=== PATIENT | female | born 1960 | race Caucasian/White ===

== ENCOUNTER 2023-08-05 09:48 | Emergency (ER) | payer MEDICAID, SELFPAY ==
[2023-08-05 10:09] VITALS: BP 185/93; PULSE 97; RESP 18; TEMP 36.6; O2SAT 97; BMI 33.1
[2023-08-05 10:59] LABS: Influenza A PCR NEGATIVE (Negative); Influenza B PCR NEGATIVE (Negative); Resp Syncy Virus RNA Qual PCR NEGATIVE (Negative); SARS COV2 PCR INHOUSE NEGATIVE (Negative)
--- NOTE | 2023-08-05 11:07 | ED.GENADULT ---
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 Has also noted increased wheezing, patient is an asthmatic she tells me. Also states the building she is living in the elevators frequently broken, and she is unable to make it all the way up the stairs due to her fibromyalgia and arthritis in her knees, she reports she has been having knee pain for years and it is worse when she goes up and down the stairs she tells me she lives on the 4th floor. Has not yet seen Ortho. Patient denies chest pain, shortness of breath, nausea, vomiting, abdominal pain, headache, vision changes, dizziness and weakness. Related Data Previous Rx's Medication Instructions Recorded albuterol sulfate 90 mcg/actuation 2 inh inhalation Q4-6H PRN 08/05/23 breath activated powder inhaler shortness of breath or wheezing #1 ea prednisone 20 mg tablet 40 mg (2 x 20 mg) PO DAILY 5 days 08/05/23 #10 tabs Allergies Allergy/AdvReac Type Severity Reaction Status Date / Time ketorolac [From Toradol] Allergy Rash Verified 08/05/23 10:09 Review of Systems Review of Systems: Constitutional : No Weight loss, No Fever, No Chills, + Fatigue, + Malaise ENT/Mouth : + sore throat, + Rhinorrhea Eyes: No Eye Pain, No Swelling, No Redness Cardiovascular : No Chest Pain, No SOB, No Dyspnea on Exertion, No Orthopnea, No Edema, No Palpitations Respiratory : + Cough, No Sputum, No Wheezing Gastrointestinal : No Nausea, No Vomiting, No Diarrhea, No Constipation, No abdominal Pain, No Hematochezia, No Melena Genitourinary : No Dysuria, No Urinary Frequency, No Hematuria, Musculoskeletal : + joint pain, No Myalgias, No Joint Swelling Skin : No Skin Lesions, No rash Neuro : No Weakness, No Numbness, No Dizziness, No Headache Psych : No Anxiety/Panic, No Depression All other systems reviewed and are negative Yes all other systems are reviewed and are negative [facility] Past Medical History Attestation statement: The following information was validated with the patient. Source: old records reviewed and nursing notes reviewed Social History Social History Advance Directives: No Advance Directives Information Provided: No Physical Exam ED Vital Signs: Vital Signs - 24 hr 08/05/23 10:09 Temperature 98 F Pulse Rate 97 Respiratory Rate 18 Blood Pressure 185/93 H Pulse Oximetry 97 Oxygen Delivery Method Room Air BMI result Body Mass Index 33.1 vss Appearance: Alert.? Oriented X3.? No acute distress.? Head: Normocephalic, atraumatic, no step-offs or deformities Throat: Uvula midline, pharynx normal appearing, no edema, erythema, abscesses or exudates. Patient speaking in full sentences controlling secretions well. Eyes: Pupils equal, round and reactive to light.? CVS: Normal heart rate and rhythm.? Pulses normal.? Respiratory: No respiratory distress.? Breath sounds with faint expiratory wheezing throughout..? Abdomen: Soft and nontender.? Skin: Skin warm and dry.? Normal skin color.? Normal skin turgor.? Extremities: No lower extremity edema.? No calf ttp. 5/5 strength to bilateral upper and lower extremities Back: No midline tenderness, no C-spine tenderness, full range of motion, no CVA tenderness bilaterally Neuro: Oriented X 3.? No motor deficit.? No sensory deficit. CN 2-12 intact Medical Decision Making Medical Decision Making MDM Narrative: 62-year-old female presents with multiple complaints including sore throat, cough, congestion the past 3 weeks status post construction starting in her building also complaining of wheezing. Also complaining of knee pain and body pain with going up and down the stairs that has been worsening. Physical examination benign Physical exam concerning for allergies/allergic irritants. Unlikely acute asthma exacerbation, respiratory distress, pneumonia, pulmonary embolism. Other differentials include viral illness. Joint pain likely secondary to my fibromyalgia and arthritis. No signs of septic joint, threat to Babb, neurovascular compromise, fracture dislocation. Plan at this time is to discharge patient home with albuterol, prednisone. Patient taking loratadine for allergies encouraged her to take this daily. Will have her follow-up with PCP. Educated patient on diagnosis and treatment plan, answered all question, patient verbalizes understanding. At this time patient will be discharged home, advised to return with new or worsening symptoms. Educated on worrisome signs and symptoms and when to return. At this time I feel comfortable discharge home. Differential Diagnosis Differential Diagnoses: The differential diagnosis associated with the presentation includes Physical exam concerning for allergies/allergic irritants. Unlikely acute asthma exacerbation, respiratory distress, pneumonia, pulmonary embolism. Other differentials include viral illness. Joint pain likely secondary to my fibromyalgia and arthritis. No signs of septic joint, threat to Babb, neurovascular compromise, fracture dislocation. Admission/Observation Consideration of admission/observation: Escalation of care including admission/observation considered Lab Data MDM Lab Attestation statement: I reviewed the patient's lab results. Labs: Lab Results 08/05/23 Range/Units 10:17 Influenza Type A (PCR) NEGATIVE (Negative) Influenza Type B (PCR) NEGATIVE (Negative) RSV RNA Qual (PCR) NEGATIVE (Negative) SARS-CoV-2 RNA (RT-PCR) NEGATIVE (Negative) Discharge Plan Discharge Clinical Impression: Viral infection, Asthma Patient Disposition: Home, Self-Care Instructions: Asthma (ED), Viral Syndrome (ED) Additional Instructions: Take your medications as prescribed. If you were prescribed antibiotics today, it is important that you take your medication to their entirety, do not skip any doses, do not finish them early. Follow-up with your primary care provider this week. Return to the emergency department with new or worsening symptoms. Such as fevers, chills, chest pain, shortness of breath, nausea, vomiting, dizziness, headache, vision changes, lethargy In case of emergency call 911 Prescriptions: New prednisone 20 mg tablet 40 mg PO DAILY 5 Days Qty: 10 0RF albuterol sulfate 90 mcg/actuation aerosol powdr breath activated 2 inh inhalation Q4-6H PRN (Reason: shortness of breath or wheezing) Qty: 1 0RF Referrals: Physician,Unknown J [Primary Care Provider] - 2 days Stand Alone Forms: Work/School Release
== END 2023-08-05 11:33 | disposition home or self-care (01) ==
PROVIDERS: Emergency Provider Emergency Medicine
DX: B34.9 Viral infection, unspecified (principal); J45.909 Unspecified asthma, uncomplicated; Z20.822 Contact with and (suspected) exposure to COVID-19; Z20.828 Contact with and (suspected) exposure to other viral communicable diseases
CPT/HCPCS: 0241U; 99283

== ENCOUNTER 2023-08-15 08:56 | Emergency (ER) | payer MEDICAID, SELFPAY ==
[2023-08-15] VITALS (7 sets, daily range): BP systolic 163–193; BP diastolic 82–110; PULSE 77–87; RESP 16–20; TEMP 37.1–37.2; O2SAT 90–98; BMI 31.7
--- NOTE | ~2023-08-15 | XR_ITS ---
EXAMINATION: XR CHEST CLINICAL INFORMATION: Chest pain, shortness of breath. COMPARISON: None available. TECHNIQUE: 2 views of the chest were obtained. FINDINGS: Right chest wall Port-A-Cath with tip at the cavoatrial junction. The lungs are well expanded. No focal consolidation. No pleural effusion. Cardiac silhouette is within normal limits. XR/XR chest 2V IMPRESSION: No acute abnormality.
--- NOTE | 2023-08-15 09:20 | ECG_ITS ---
Test Reason : cp Blood Pressure : / mmHG Vent. Rate : 087 BPM Atrial Rate : 087 BPM P-R Int : 162 ms QRS Dur : 078 ms QT Int : 376 ms P-R-T Axes : 023 016 054 degrees QTc Int : 452 ms Normal sinus rhythm Normal ECG No previous ECGs available Referred By: Generic ED Physician Electronically Signed By:DENISE ESPOSITO MD
--- NOTE | 2023-08-15 09:30 | ED.CHESTPAIN ---
HPI - Chest Pain General Chief Complaint: Chest Pain Stated Complaint: Asthma Time Seen by Provider: 08/15/23 09:30 Source: patient, RN notes reviewed and old records reviewed Mode of arrival: ambulatory History of Present Illness HPI narrative: 62-year-old female with past medical history of asthma, fibromyalgia, arthritis, presenting to the ED complaining of cough, SOB, chest pain, and diffuse myalgias s/p argument with person in her building on . Patient was seen and treated in our ED on 08/05 for similar symptoms related to asthma, has been using inhaler and prednisone without relief, however states symptoms exacerbated after this argument. Denies fever/chills, recent travel, sick contacts, pedal edema, calf tenderness MD complaint: chest pain Related Data Previous Rx's Medication Instructions Recorded albuterol sulfate 90 mcg/actuation 2 inh inhalation Q4-6H PRN 08/05/23 breath activated powder inhaler shortness of breath or wheezing #1 ea prednisone 20 mg tablet 40 mg (2 x 20 mg) PO DAILY 5 days 08/05/23 #10 tabs albuterol sulfate 90 mcg/actuation 2 puff inhalation QID PRN 08/09/23 aerosol inhaler shortness of breath or wheezing #6.7 grams prednisone 20 mg tablet 40 mg (2 x 20 mg) PO DAILY 5 days 08/15/23 #10 tabs Allergies Allergy/AdvReac Type Severity Reaction Status Date / Time ketorolac [From Toradol] Allergy Rash Verified 08/15/23 09:20 Review of Systems Review of Systems: Constitutional: No Fever, No Chills, No Fatigue, No Malaise ENT/Mouth: No Ear Pain, No Nasal Congestion, No sore throat, No Rhinorrhea, No Swallowing Difficulty Eyes: No Eye Pain, No Swelling, No Redness, No Vision Changes Cardiovascular: +Chest Pain, + SOB, No Dyspnea on Exertion, No Orthopnea, No Edema, No Palpitations Respiratory: +Cough, No Sputum, No Wheezing, No Dyspnea Gastrointestinal: No Nausea, No Vomiting, No Diarrhea, No Constipation, No Abdominal pain Musculoskeletal: No joint pain, +Myalgias, No Joint Swelling Skin: No Skin Lesions, No rash Neuro: No Weakness, No Loss of Consciousness, No Dizziness, No Headache Yes all other systems are reviewed and are negative Constitutional: Constitutional: Reports as per [facility] Past Medical History Attestation statement: The following information was validated with the patient. Source: old records reviewed Social History Social History Alcohol intake: never Use of substances other than those prescribed or required for medical reasons: No Advance Directives: No Patient : No Physical Exam Vital Signs: Vital Signs: Last Vital Signs Temp 98.8 F 08/15/23 09:42 Pulse 77 08/15/23 11:31 Resp 16 08/15/23 11:31 BP 193/110 H 08/15/23 09:42 Pulse Ox 95 08/15/23 12:13 O2 Del Method Room Air 08/15/23 12:13 BMI result Body Mass Index 31.7 Const: General: cooperative, healthy appearing, no acute distress and anxious Orientation/consciousness: patient oriented x3 Limitations: no limitations HEENT: Head: Yes normal to inspection and Yes atraumatic Ears: hearing grossly normal bilaterally General nose exam: Normal external nose present Face and sinus: Yes normal facial exam Eyes: General: appearance normal, both eyes and all related structures EOM: EOMs intact bilaterally Neck: Neck: Yes normal visual inspection and Yes no meningeal signs Resp: Effort & Inspection: normal respiratory effort and no respiratory distress Auscultation: no crackles, no wheezes and diminished lung sounds bilateral in the lower lung galindo Cardio: Rate: regular rate Heart sounds: S1 normal heart sound present and S2 normal heart sound present GI: Inspection: Yes normal to inspection Palpation (GI): Soft to palpation, nontender, no guarding and not rigid Skin: Rashes: no rashes Wounds: no wounds Neuro: General: patient oriented x3, tone normal and no meningeal signs Cranial nerves: Yes CN's II-XII intact bilaterally Gait exam (Neuro): Normal gait present Extrem: General: Yes normal to inspection, Yes no pedal edema and Yes no calf tenderness Course Course Course Narrative: -1110--labs reassuring. Troponin negative. UA negative. COVID and influenza negative XR chest 2V IMPRESSION: No acute abnormality. > patient with good air movement after DuoNeb. Feels comfortable for discharge home, will refer to pulmonology Results discussed with patient including worrisome signs and symptoms and strict return precautions, and when to return to the emergency department. They verbalized understanding and feel safe for discharge at this time. Medications Administered Discontinued Medications Generic Name Dose Route Start Last Admin Trade Name Kai PRN Reason Stop Dose Admin Albuterol/Ipratropium 3 ml 08/15/23 09:39 08/15/23 10:06 Albuterol/Iprat 2.5/0.5mg 3 Ml Ampul.Neb INHALE 08/15/23 09:40 3 ml ONCE ONE Administration Albuterol/Ipratropium 3 ml 08/15/23 11:12 08/15/23 11:30 Albuterol/Iprat 2.5/0.5mg 3 Ml Ampul.Neb INHALE 08/15/23 11:13 3 ml ONCE ONE Administration Prednisone 40 mg 08/15/23 09:39 08/15/23 09:56 Prednisone 20 Mg Tablet PO 08/15/23 09:40 40 mg ONCE ONE Administration Medical Decision Making Medical Decision Making MDM Narrative: 62-year-old female with past medical history of asthma, fibromyalgia, arthritis, presenting to the ED complaining of cough, SOB, chest pain, and diffuse myalgias s/p argument with person in her building on . On exam vital signs stable, NAD, nontoxic appearing, diminished lung sounds bibasilarly, no appreciable wheezing, no calf tenderness. Patient appears anxious. Concern for anxiety/panic reaction vs asthma exacerbation vs viral syndrome. Rule out pneumonia. Lower suspicion for PE/ACS or CHF Plan: EKG, labs CXR, viral testing, DuoNeb, p.o. prednisone Please refer to course for remaining clinical decision making, interpretation of labs/imaging results, and discussions with consultants and/or family members. Differential Diagnosis Differential Diagnoses: The differential diagnosis associated with the presentation includes As above Admission/Observation Consideration of admission/observation: Escalation of care including admission/observation considered Lab Data [facility] Lab Attestation statement: I reviewed the patient's lab results. 08/15/23 09:57 08/15/23 09:57 Labs: Lab Results 08/15/23 08/15/23 08/15/23 Range/Units 09:37 09:46 09:57 WBC 7.5 (4.8-10.8) X10*3/uL RBC 4.99 (4.20-5.50) X10*6/uL Hgb 14.3 (12.0-16.0) g/dl Hct 43.4 (37.0-47.0) % MCV 87.0 (80.0-98.0) fL MCH 28.7 (27.0-33.0) pg MCHC 32.9 (31.0-35.0) g/dl RDW 12.7 (11.0-16.0) % Plt Count 334 (160-400) X10*3/uL MPV 9.2 L (9.4-12.3) fL Immature Gran % (Auto) 0.3 (0.0-0.4) % Neut % (Auto) 43.9 L (45-73) % Lymph % (Auto) 45.5 H (20-40) % Randall % (Auto) 7.9 (2-11) % Eos % (Auto) 1.7 (0-4) % Baso % (Auto) 0.7 (0-2) % Lymph # (Auto) 3.4 (1.2-4.9) X10*3/uL Randall # (Auto) 0.6 (0.1-1.2) X10*3/uL Eos # (Auto) 0.1 (0.0-0.4) X10*3/uL Baso # (Auto) 0.1 (0.0-0.2) X10*3/uL Abs Immat Gran (auto) 0.02 (0.00-0.03) X10*3/uL Absolute Neuts (auto) 3.3 (2.0-8.3) x10*3/uL Absolute Nucleated RBC 0.000 (0.0-0.012) X10*3/uL Nucleated RBC % (auto) 0.0 (0.0-0.2) /100WBC Sodium 141 (135-145) mmol/L Potassium 3.6 (3.3-5.1) mmol/L Chloride 107 (96-108) mmol/L Carbon Dioxide 24 (22-29) mmol/L Anion Gap 14 (12-20) BUN 10 (9-16) mg/dL Creatinine 0.71 (0.5-1.4) mg/dL Estim Creat Clear Calc 84.9 Estimated GFR > 60 Random Glucose 154 H (60-115) mg/dL Calcium 9.8 (8.4-10.2) mg/dL Total Bilirubin 0.3 (0.0-1.0) mg/dL Direct Bilirubin 0.1 (0.0-0.5) mg/dL AST 19 (5-31) U/L ALT 23 (0-31) U/L Alkaline Phosphatase 117 (39-117) U/L Troponin I High Sens < 2.7 (<3.5-17.0) ng/L B-Natriuretic Peptide < 10 (<100) pg/mL Total Protein 7.3 (6.5-8.0) g/dL Albumin 4.3 (3.5-5.0) g/dL Urine Color Yellow Urine Appearance Clear Urine pH 8.5 (5.0-9.0) Ur Specific [place] 1.025 (1.005-1.025) Urine Protein Negative (Neg-Trace) mg/dL Urine Glucose (UA) >=1000 H (Negative) mg/dL Urine Ketones Negative (Negative) mg/dL Urine Blood Negative (Negative) Urine Nitrite Negative (Negative) Ur Leukocyte Esterase Negative (Negative) Urine RBC 0-2 (0-2) /HPF Urine WBC 0-5 (0-5) /HPF Ur Squamous Epith Cells 0-2 (0-2) /HPF Urine Bacteria None Seen (None Seen) Hyaline Casts 0-2 (0-2) /LPF COVID-19 (LAVINIA) Negative (Negative) COVID-19 Clin Com See Note Influenza Type A (DAMIAN) Negative (Negative) Influenza Type B (DAMIAN) Negative (Negative) Influenza A & B Note See Note Independent Interpretation I performed an independent interpretation of an: EKG (My interpretation: NSR 87, CA interval 162. QTc 452. no previous to compare) and Plain X-Ray Radiology Impression Discussion of test interpretation with radiology: I have reviewed the radiologist's reading. External Record Review External record reviewed: Inpatient record, Office record, Outpatient record, Prior outpatient labs, Prior outpatient radiology, Primary care record and Outside ED record Tests considered The following testing was considered but not selected: As above Chronic Conditions Patient?s care impacted by: Other (asthma) Discharge Plan Discharge Clinical Impression: Asthma, Anxiety Patient Disposition: Home, Self-Care Instructions: Asthma (DC), Anxiety (ED) Additional Instructions: Blood work and chest x-ray were reassuring. you tested negative for COVID Continue to use inhaler at home Start taking prednisone as prescribed You need to follow-up with her doctor & pulmonology If symptoms persist or worsen return to the ED Los an?lisis de jax y la radiograf?a de t?rax fueron tranquilizadores. tu prueba de COVID fue negativa Contin?e usando el inhalador en casa. Comience a mari prednisona seg?n lo prescrito Necesita hacer un seguimiento con grewal m?dico y neum?logo. Si los s?ntomas persisten o empeoran, regrese al servicio de urgencias. Prescriptions: New prednisone 20 mg tablet 40 mg PO DAILY 5 Days Qty: 10 0RF No Action prednisone 20 mg tablet 40 mg PO DAILY 5 Days Qty: 10 0RF albuterol sulfate 90 mcg/actuation aerosol powdr breath activated 2 inh inhalation Q4-6H PRN (Reason: shortness of breath or wheezing) Qty: 1 0RF albuterol sulfate 90 mcg/actuation HFA aerosol inhaler 2 puff inhalation QID PRN (Reason: shortness of breath or wheezing) Qty: 6.7 0RF Referrals: [facility] [place] Pulmonology Services [Provider Group] Physician,Unknown J [Primary Care Provider] - Print Language: Bolivian
--- NOTE | 2023-08-15 09:39 | PC.NURSE ---
a&ox3, vss aside from being hypertensive. provider aware at this time. nsr on the environmental monitoring specialist. provider/seed technician bedside. pt comes in today d/t increased generalized weakness, substernal chest pain that radiates to left side of chest, sob, and body pain. pt has hx of fibromyalgia/anxiety. no sob/wob noted at this time. pt able to speak in full/clear sentences w/o difficultly. respirations even and unlabored. call joy placed within reach.
[2023-08-15 09:45] LABS: Appearance Urine Clear; Color Urine Yellow; Glucose Urine UA >=1000 mg/dL (Negative); Leukocyte Esterase Urine Negative (Negative); Nitrite Urine Negative (Negative); PH 8.5 (5.0-9.0); Specific Gravity - Urine 1.025 (1.005-1.025); UMIC TRIGGER UACC YES; Urine Blood Negative (Negative); Urine Ketones Negative (Negative); Urine Protein Negative (Neg-Trace)
--- NOTE | 2023-08-15 09:46 | PC.NURSE ---
nasal swabs obtained. pt going to xray at this time. tech will draw labs when pt returns.
[2023-08-15] MEDS: predniSONE 20 MG TABLET 40 MG PO (09:56)
--- NOTE | 2023-08-15 09:57 | PC.NURSE ---
tech obtaining labs at this time. medication administered per provider order.
[2023-08-15 10:04] LABS: MANUAL DIFF FLAG NO
[2023-08-15 10:05] LABS: Basophils Absolute Auto 0.1 X10*3/uL (0.0-0.2); Basophils Percent Auto 0.7 % (0-2); Eosinophils Absolute Auto 0.1 X10*3/uL (0.0-0.4); Eosinophils Percent Auto 1.7 % (0-4); Hematocrit 43.4 % (37.0-47.0); Hemoglobin 14.3 g/dl (12.0-16.0); Imm Gran Abs Auto 0.02 X10*3/uL (0.00-0.03); Imm Gran Pct Auto 0.3 % (0.0-0.4); Lymphocytes Absolute Auto 3.4 X10*3/uL (1.2-4.9); Lymphocytes Percent Auto 45.5 % (20-40); Mean Corpuscular HGB Conc 32.9 g/dl (31.0-35.0); Mean Corpuscular Hemoglobin 28.7 pg (27.0-33.0); Mean Platelet Volume 9.2 fL (9.4-12.3); Monocytes Absolute Auto 0.6 X10*3/uL (0.1-1.2); Monocytes Percent Auto 7.9 % (2-11); Neutrophils Absolute Auto 3.3 x10*3/uL (2.0-8.3); Neutrophils Percent Auto 43.9 % (45-73); Platelet Count 334 X10*3/uL (160-400); Red Blood Count 4.99 X10*6/uL (4.20-5.50); Red Cell Distribution Width 12.7 % (11.0-16.0); White Blood Count 7.5 X10*3/uL (4.8-10.8)
--- NOTE | 2023-08-15 10:05 | PC.NURSE ---
RT bedside - pt receiving nebulizer treatment.
[2023-08-15] MEDS: Albuterol/Iprat 2.5/0.5MG 3 ML AMPUL.NEB INHALE ×2 (10:06→11:30)
[2023-08-15 10:08] LABS: Bacteria Urine None Seen (None Seen); Hyaline Casts Urine 0-2 /LPF (0-2); RBC Urine 0-2 /HPF (0-2); Squamous Epithelial Cell Urine 0-2 /HPF (0-2); WBC Urine 0-5 /HPF (0-5)
[2023-08-15 10:12] LABS: COVID-19 Test Negative (Negative); IDNOW Serial# 9DB6401D; IDNOW Serial# BCCEAD1C; Influenza A Negative (Negative); Influenza B2 Negative (Negative)
[2023-08-15 10:22] LABS: Alanine Aminotransferase 23 U/L (0-31); Albumin Level 4.3 g/dL (3.5-5.0); Alkaline Phosphatase 117 U/L (39-117); Anion Gap 14 (12-20); Aspartate Amino Transferase 19 U/L (5-31); Bilirubin Direct 0.1 mg/dL (0.0-0.5); Bilirubin Total 0.3 mg/dL (0.0-1.0); Blood Urea Nitrogen 10 mg/dL (9-16); Calcium 9.8 mg/dL (8.4-10.2); Carbon Dioxide 24 mmol/L (22-29); Chloride 107 mmol/L (96-108); Creatinine Clr Calc Pharmacy 84.9; Estimated Glomerular Filt Rate > 60; Glucose Random 154 mg/dL (60-115); Potassium 3.6 mmol/L (3.3-5.1); Sodium 141 mmol/L (135-145); Total Protein 7.3 g/dL (6.5-8.0)
[2023-08-15 10:27] LABS: B Type Natriuretic Peptide < 10 pg/mL (<100)
[2023-08-15 10:49] LABS: Troponin-I High Sensitivity < 2.7 ng/L (<3.5-17.0)
== END 2023-08-15 12:25 | disposition home or self-care (01) ==
PROVIDERS: Physician Assistant; Emergency Provider Student in an Organized Health Care Education/Training Program
DX: J45.909 Unspecified asthma, uncomplicated (principal); R07.89 Other chest pain; M79.10 Myalgia, unspecified site; F41.1 Generalized anxiety disorder; F43.0 Acute stress reaction; R06.02 Shortness of breath; Z11.52 Encounter for screening for COVID-19; Z20.822 Contact with and (suspected) exposure to COVID-19; Z79.899 Other long term (current) drug therapy
CPT/HCPCS: 71046; 80048; 80076; 81001; 81003; 83880; 84484; 85025; 87502; 87635; 93005; 94640; 99284; 99285

== ENCOUNTER 2025-04-25 09:00 | Emergency (ER) | payer MEDICAID, SELFPAY ==
[2025-04-25 09:07] VITALS: BP 135/75; PULSE 79; RESP 16; TEMP 36.8; O2SAT 96; BMI 31.5
[2025-04-25 10:10] LABS: MANUAL DIFF FLAG NO
[2025-04-25 10:11] LABS: Hematocrit 38.6 % (37.0-47.0); Hemoglobin 13.0 g/dl (12.0-16.0); Imm Gran Abs Auto 0.02 X10*3/uL (0.00-0.03); Imm Gran Pct Auto 0.3 % (0.0-0.4); Lymphocytes Absolute Auto 2.9 X10*3/uL (1.2-4.9); Mean Corpuscular HGB Conc 33.7 g/dl (31.0-35.0); Mean Corpuscular Hemoglobin 28.6 pg (27.0-33.0); Mean Corpuscular Volume 84.8 fL (80.0-98.0); NRBC Abs Auto 0.000 X10*3/uL (0.0-0.012); NRBC Pct Auto 0.0 /100WBC (0.0-0.2); Platelet Count 303 X10*3/uL (160-400); Red Blood Count 4.55 X10*6/uL (4.20-5.50); White Blood Count 5.9 X10*3/uL (4.8-10.8)
[2025-04-25 10:28] LABS: Alanine Aminotransferase 24 U/L (0-31); Albumin Level 4.2 g/dL (3.5-5.0); Alkaline Phosphatase 128 U/L (39-117); Anion Gap 11 (12-20); Aspartate Amino Transferase 23 U/L (5-31); Blood Urea Nitrogen 13 mg/dL (9-16); Calcium 8.9 mg/dL (8.4-10.2); Carbon Dioxide 26 mmol/L (22-29); Chloride 109 mmol/L (96-108); Creatinine Clr Calc Pharmacy 80.6; Estimated Glomerular Filt Rate > 60; Magnesium 2.3 mg/dL (1.6-2.6); Potassium 3.8 mmol/L (3.3-5.1); Sodium 142 mmol/L (135-145); Total Protein 6.8 g/dL (6.5-8.0)
--- NOTE | 2025-04-25 11:22 | ED.GENADULT ---
HPI - General Adult General Chief complaint: General Medical Stated complaint: lump under arm Time Seen by Provider: 04/25/25 11:22 Source: patient, RN notes reviewed, old records reviewed and television installer Mode of arrival: ambulatory Limitations: language barrier History of Present Illness ED Provider: Castillo HPI narrative: Patient is a 64-year-old female with history of T2 DM, HTN presenting to emergency department with complaint of left ankle swelling last night which has since resolved. Denies fall or other injury. Also complaining of bilateral lower back pain for the past few days. Denies dysuria, frequency, hematuria or other urinary symptoms. Denies fevers. Also complaining of abscess to right axilla, history of same to left axilla 1 year ago. Denies fevers, chills, body aches. Denies any spontaneous drainage. Denies recent falls or other trauma. Denies any chest pain, palpitations, dyspnea. Denies any dizziness or lightheadedness. Denies saddle anesthesia or bowel or bladder incontinence. MD complaint: Ankle swelling, back pain, abscess Related Data Previous Rx's ?Medication ?Instructions ?Recorded albuterol sulfate 90 mcg/actuation 2 inh inhalation Q4-6H PRN 08/05/23 breath activated powder inhaler shortness of breath or wheezing #1 ea prednisone 20 mg tablet 40 mg (2 x 20 mg) PO DAILY 5 days 08/05/23 #10 tabs albuterol sulfate 90 mcg/actuation 2 puff inhalation QID PRN 08/09/23 aerosol inhaler shortness of breath or wheezing #6.7 grams prednisone 20 mg tablet 40 mg (2 x 20 mg) PO DAILY 5 days 08/15/23 #10 tabs cephalexin 500 mg capsule 500 mg PO QID #28 caps 04/25/25 cyclobenzaprine 5 mg tablet 5 mg PO TID PRN muscle spasm #10 04/25/25 tabs lidocaine 5 % topical patch 1 patch topical DAILY #15 ea 04/25/25 Allergies Allergy/AdvReac Type Severity Reaction Status Date / Time ketorolac (From Toradol) Allergy Rash Verified 04/25/25 09:09 Review of Systems Review of Systems: as per hpi Yes all other systems are reviewed and are negative Constitutional: Constitutional: Reports as per HPI PMFSH Social History Social History Alcohol intake: never Advance Directives: No Advance Directives Information Provided: Yes Physical Exam ED Vital Signs: Vital Signs - 24 hr 04/25/25 09:07 Temperature 98.2 F Pulse Rate 79 Respiratory Rate 16 Blood Pressure 135/75 Pulse Oximetry 96 Oxygen Delivery Method Room Air BMI result Body Mass Index 31.5 Vital signs have been reviewed and appear to be correct. Blood pressure normal. Heart rate normal. Respiratory rate normal. Temperature normal. Oxygen saturation normal. Const General: cooperative, healthy appearing and no acute distress Orientation/consciousness: oriented to person, oriented to place, oriented to time and patient oriented x3 Limitations: no limitations HENMT Head: Yes normocephalic and Yes atraumatic Ears: external ears normal General nose exam: Normal external nose present Face and sinus: Yes face symmetric Mouth: oropharynx normal and moist mucous membranes Throat: Yes uvula midline Eyes Pupils: Equal, round and reactive pupils present Neck Neck: Yes normal visual inspection and Yes supple Resp Effort & Inspection: normal respiratory effort and able to speak in complete sentences Auscultation: clear to auscultation bilaterally Cardio Rate: regular rate Rhythm: regular rhythm Heart sounds: S1 normal heart sound present and S2 normal heart sound present GI Palpation (GI): Soft to palpation and nontender Auscultation: normoactive bowel sounds General: Yes no CVA tenderness Back/Spine/Pelvis Back: no CVA tenderness Thoracic/Lumbar Spine: thoracic and lumbar spine normal to inspection, thoraco-lumbar ROM normal, paraspinal muscle tenderness bilaterally in the mid lumbar, No thoracic spinal tenderness and No lumbar spinal tenderness Skin Other: 1 cm erythematous indurated area to right axilla without fluctuance or surrounding warmth or erythema General skin exam: elasticity normal and turgor normal Neuro General: oriented to person, oriented to place, oriented to time, patient oriented x3, moves all extremities, no focal motor deficits and CN's II-XI intact bilaterally Cranial nerves: Yes Equal, round and reactive pupils present Cognition (Neuro): normal cognition Extrem General: Yes full ROM, Yes no pedal edema and Yes no calf tenderness Psych Mental Status: mental status grossly normal Affect: normal affect Thought process: Normal thought process present Medical Decision Making Medical Decision Making MDM Narrative: Patient is a 64-year-old female with history of T2 DM, HTN presenting to emergency department with complaint of left ankle swelling last night which has since resolved. On exam patient is awake, A+Ox3, VS WNL, afebrile, normal neurological exam without focal deficits, physical exam findings as above. Given reported symptoms and physical exam findings, initial differential includes but is not limited to biliary abscess, dependent edema, lumbar strain, UTI. Do not suspect malignancy/mass, SEA, cauda equina/cord compression. Labs notable for no leukocytosis, no evidence of TERESA. UA notable for greater than 1000 mg/dL of glucose, no leukocytosis, no nitrites, 1+ bacteria but 6-10 epithelials, likely contamination. Will treat patient with Keflex for axillary abscess, advised warm compresses. Will send prescription for Flexeril for lumbar strain. Discussed with patient that her edema is likely dependent, should keep legs elevated while at rest, can also use compression stockings. Follow up with PCP as needed. Return precautions discussed. Patient verbalized understanding of and agreement with plan. In-person telecommunications project manager was utilized for all interactions, assessments, and discussions. Differential Diagnosis Differential Diagnoses: The differential diagnosis associated with the presentation includes As per [facility] Admission/Observation Consideration of admission/observation: Escalation of care including admission/observation considered Patient would have been admitted to the hospital had their clinical presentation warranted hospital admission. Lab Data [facility] Lab Attestation statement: I reviewed the patient's lab results. as per [facility] 04/25/25 10:04 04/25/25 10:04 Labs: Lab Results 04/25/25 04/25/25 Range/Units 10:04 12:09 WBC 5.9 (4.8-10.8) X10*3/uL RBC 4.55 (4.20-5.50) X10*6/uL Hgb 13.0 (12.0-16.0) g/dl Hct 38.6 (37.0-47.0) % MCV 84.8 (80.0-98.0) fL MCH 28.6 (27.0-33.0) pg MCHC 33.7 (31.0-35.0) g/dl RDW 13.7 (11.0-16.0) % Plt Count 303 (160-400) X10*3/uL MPV 9.0 L (9.4-12.3) fL Immature Gran % (Auto) 0.3 (0.0-0.4) % Neut % (Auto) 40.2 L (45-73) % Lymph % (Auto) 49.1 H (20-40) % [place]erry % (Auto) 7.6 (2-11) % Eos % (Auto) 1.5 (0-4) % Baso % (Auto) 1.3 (0-2) % Lymph # (Auto) 2.9 (1.2-4.9) X10*3/uL [place] # (Auto) 0.5 (0.1-1.2) X10*3/uL Eos # (Auto) 0.1 (0.0-0.4) X10*3/uL Baso # (Auto) 0.1 (0.0-0.2) X10*3/uL Abs Immat Gran (auto) 0.02 (0.00-0.03) X10*3/uL Absolute Neuts (auto) 2.4 (2.0-8.3) x10*3/uL Absolute Nucleated RBC 0.000 (0.0-0.012) X10*3/uL Nucleated RBC % (auto) 0.0 (0.0-0.2) /100WBC Sodium 142 (135-145) mmol/L Potassium 3.8 (3.3-5.1) mmol/L Chloride 109 H (96-108) mmol/L Carbon Dioxide 26 (22-29) mmol/L Anion Gap 11 L (12-20) BUN 13 (9-16) mg/dL Creatinine 0.70 (0.5-1.4) mg/dL Estim Creat Clear Calc 80.6 Estimated GFR > 60 Random Glucose 125 H (60-115) mg/dL Calcium 8.9 D (8.4-10.2) mg/dL Magnesium 2.3 (1.6-2.6) mg/dL Total Bilirubin 0.3 (0.0-1.0) mg/dL AST 23 (5-31) U/L ALT 24 (0-31) U/L Alkaline Phosphatase 128 H (39-117) U/L Total Protein 6.8 (6.5-8.0) g/dL Albumin 4.2 (3.5-5.0) g/dL Urine Color Yellow Urine Appearance Cloudy Urine pH 7.5 (5.0-9.0) Ur Specific [place] 1.020 (1.005-1.025) Urine Protein Negative (Neg-Trace) mg/dL Urine Glucose (UA) >=1000 H (Negative) mg/dL Urine Ketones Negative (Negative) mg/dL Urine Blood Negative (Negative) Urine Nitrite Negative (Negative) Ur Leukocyte Esterase Negative (Negative) Discharge Plan Discharge Clinical Impression: Abscess of axilla, right, Lumbar strain, Dependent edema Patient Disposition: Home, Self-Care Instructions: Low Back Strain (ED), Abscess (ED), Back Pain (ED), Edema (ED), Abscess Follow-up (ED) Additional Instructions: You are being treated for an abscess of your right axilla (armpit) a course of antibiotics. Complete the full course as prescribed even if your symptoms improve. We recommend that you apply warm compresses to the area for 10-15 minutes at a time several times daily. Do not attempt to express fluid from the areas this can cause a worsening infection. You are being treated for a low back strain with a muscle relaxer and topical lidocaine patches. Use these medications as prescribed. Your swelling to your ankle is likely due to dependent edema. We recommend that you elevate your feet while at rest. You can also use [id number] compression stockings. Follow up with your primary care provider as needed. Return to the emergency department if you develop increasing redness, warmth, drainage from the abscess, fever 100.4? F or greater, incontinence of urine or stool or difficulty urinating, persistent vomiting, chest pain, shortness of breath or any other new or concerning symptoms. Prescriptions: New cephalexin 500 mg capsule 500 mg PO QID Qty: 28 0RF lidocaine 5 % adhesive patch,medicated 1 patch topical DAILY Qty: 15 0RF Rx Instructions: leave on most painful area for up to 12 hrs cyclobenzaprine 5 mg tablet 5 mg PO TID PRN (Reason: muscle spasm) Qty: 10 0RF No Action prednisone 20 mg tablet 40 mg PO DAILY 5 Days Qty: 10 0RF albuterol sulfate 90 mcg/actuation aerosol powdr breath activated 2 inh inhalation Q4-6H PRN (Reason: shortness of breath or wheezing) Qty: 1 0RF albuterol sulfate 90 mcg/actuation HFA aerosol inhaler 2 puff inhalation QID PRN (Reason: shortness of breath or wheezing) Qty: 6.7 0RF prednisone 20 mg tablet 40 mg PO DAILY 5 Days Qty: 10 0RF Print Language: Belarusian
--- OUTSIDE RECORDS SUMMARY | 2025-04-25 12:11 | XMS_ITS | Clinical Summary ---
Author Organization [facility] Address [address] [place] [address] Care Team Providers Care Restaurant Service Manager Name Role Phone Dom, Tylor R AMRAI Primary Care Provider Allergies No known active allergies Medications Medication Sig Dispensed Refills Start Date End Date Status gabapentin (NEURONTIN) 800 MG tablet Take 1 tablet (800 mg total) by mouth 2 (two) times a day. 0 Active glipiZIDE (GLUCOTROL XL) ER 24 hr tablet 2.5 mg Take 1 tablet (2.5 mg total) by mouth daily. 0 Active mirtazapine (REMERON) 15 MG tablet Take 1 tablet (15 mg total) by mouth every night at bedtime. 0 Active clonazePAM (KlonoPIN) 1 MG tablet Take 1 tablet (1 mg total) by mouth 2 (two) times a day as needed for anxiety. 0 Active loratadine (CLARITIN) 10 MG tablet Take 1 tablet (10 mg total) by mouth daily. 0 Active DULoxetine (CYMBALTA) DR capsule 20 mg Take 1 capsule (20 mg total) by mouth daily. 0 Active Active Problems Problem Noted Date Diagnosed Date Malignant neoplasm of overla pping sites of left breast in female, estrogen receptor positive 06/03/2020 BRCA negative 06/03/2020 Social History Tobacco Use Types Packs/Day Years Used Date Smoking Tobacco: Never Smokeless Tobacco: Never Alcohol Use Standard Drinks/Week Comments No 0 (1 standard drink = 0.6 oz pur e alcohol) Sex and Gender Information Value Date Recorded Sex Assigned at Not on file Gender Identity Not on file Sexual Orientation Not on file Job Start Date Occupation Industry Not on file Not on file Not on file Last Filed Vital Signs Vital Sign Reading Time Taken Comments Blood Pressure 154/81 04/15/2023 12:04 PM EDT Pulse 72 04/15/2023 12:04 PM EDT Temperature 36.4 C (97.6 F) 04/15/2023 12:04 PM EDT Respiratory Rate - - Oxygen Saturation 97% 04/15/2023 12:04 PM EDT Inhaled Oxygen Concentration - - Weight 81.7 kg (180 lb 3.2 oz) 04/15/2023 12:04 PM EDT Height 160 cm (5' 3 ) 06/03/2020 3:46 PM EDT Body Mass Index 31.92 06/03/2020 3:46 PM EDT Plan of Treatment Health Maintenance Due Date Last Done Comments Hepatitis C Screening 1959 Depression Screening 1971 Preventative Health Evaluation 1977 Cervical Cancer Screening (Pap Smear) 1980 Colon Cancer Screening (Colonoscopy) 2004 Breast Cancer Screening (Mammogram) 2009 Pneumococcal Vaccine (2 of 2 - PCV) 07/10/2019 07/10/2018 Pneumococcal Vaccine (2 of 2 - PCV) 07/10/2019 07/10/2018 COVID-19 Vaccine ( season) 2024 07/15/2022, 01/26/2022, 09/22/2021, Additional history exists Fall Risk Assessment 2024 Osteoporosis Screening (DEXA Scan) 2024 Influenza Vaccine (#1) 2025 09/05/2020 DTap / Tdap / Td (2 - Td or Tdap) 07/10/2028 07/10/2018 RSV Adult > 60+ Yrs or (1 - 1-dose 75+ series) 2034 Shingrix-Zoster Vaccine Completed 10/14/2020, 06/11 Hepatitis B Vaccines Aged Out No long er eligible based on patient's age to complete this topic RSV Ped < 20 months Aged Out No longe r eligible based on patient's age to complete this topic Care Teams Restaurant Service Manager Relationship Specialty Start Date End Date Justin Fernandes APRN [address] [place] [id number] PCP - General Family Medicine 03/23/23 Justin Fernandes FNP [address] [place] [address] Nurse Practitioner Primary Care 03/23/23
--- OUTSIDE RECORDS SUMMARY | 2025-04-25 12:11 | XMS_ITS | Data Portability ---
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 neoplasm of breast 492391597 Z85.3 B mastectomy Seasonal a llergic rhinitis 944519085 J30.2 samson/flut/ dayana Memory impairment 739583 006 R41.3 memantine Microalbum inuric diabetic nephropathy 048716070 E11.21 irbesartan 150 Vitamin D deficiency 347 92907 E55.9 vitamin d Hypertriglyceridemia 302 816170 E78.1 TG 359 04/17/20 Lovaza 1 Low back pain 387018811 M54.5 ibu 600, Mapap, cycloben 5mg Hypomagnesemia 716663801 E83.42 mag 1.7 07/04/20 Noncomplia nce with medication regimen 351670317 Z91.14 education provided for compliance to medication and treatment. [address] [facility] [address] [place] [address] 08/12/2020 09:04:32 08/12/2020 11:24:15 Low back pain 096103991 M54.5 ibu 600, Mapap, cycloben 5----->10 mg, meloxicam 15 x-ray thoracic spine @ [facility] mgt referral next ov if needed-p Fibromyalgia 495397352 M 79.7 voltaren gel Hypertensive disorder 38 457898 I10 irbesartan 150 Diabetic n europathy with neurologic complication 367374498 E11.40 gabapentin Bilateral knee pain 1187 810914 6397495 M25.562 diclofenac top 1% , [facility] physical therapy referral Contact dermatitis 31799 004 L25.9 08/12/20 face/local ized to forehead mild soap and water, avoid apply sparingly betamethas one top. daily per pt's req due to ongoing/ch ronic Derm referral Demos-p [id number] [facility] [address] [place] [address] 2020 10:25:49 2020 13:16:17 Low back pain 770565957 M54.5 ibu 600, Mapap, cycloben 5----->10 mg, meloxicam 15 x-ray thoracic spine @ [facility] mgt referral next ov if needed-p Hypertensive disorder 38 480680 I10 irbesartan 150 Multiple complications due to type 2 diabetes mellitus 408030458 E11.8 NCS diet HBA1c 9.6, LDL 71, m/c 144 04/17/20 HBa1c 9.4 07/04/20 jardiance 10, rybelsus 7, met 1,000, asa 81 Memory impairment 063344 006 R41.3 memantine 5 Contact dermatitis 20300 004 L25.9 08/12/20 face/local ized to forehead mild soap and water, avoid apply sparingly betamethas one top. daily per pt's req due to ongoing/ch ronic Derm referral Demos-p Bilateral knee pain 1187 004189 2874388 M25.562 diclofenac top 1% , [facility] physical therapy referral Fibromyalgia 102766837 M 79.7 voltaren gel Diabetic n europathy with neurologic complication 882176266 E11.40 gabapentin 800 Hypomagnesemia 709449996 E83.42 mag 1.7 07/04/20 pt will try mag at night time Anxiety disorder 0398020 06 F41.9 psych Arthritis 5138056 M19.90 Mapap Obesity 575029582 E66.9 diet and exercise History of malignant neoplasm of breast 203986180 Z85.3 B mastectomy Seasonal a llergic rhinitis 732406419 J30.2 samson/flut/ dayana Microalbum inuric diabetic nephropathy 655069225 E11.21 irbesartan 150 Vitamin D deficiency 347 07840 E55.9 vitamin d Hypertriglyceridemia 302 644612 E78.1 TG 359 04/17/20 Lovaza 1 Noncomplia nce with medication regimen 792536186 Z91.14 education provided for compliance to medication and treatment. [id number] DO MARCOS Coughlin [address] [facility] [place] [address] 10/01/2020 11:56:39 10/01/2020 13:37:15 Low back pain 446551022 M54.5 ibu 600, Mapap, cycloben 5----->10 mg, meloxicam 15 x-ray thoracic spine @ [facility] pain mgt referral next ov if needed-p Doing better on Flexeril. Stopped Ibuprofen. Only taking Meloxicam and Tylenol Hypertensive disorder 38 920635 I10 irbesartan 150 BP 120/70 today Multiple complications due to type 2 diabetes mellitus 277833794 E11.8 NCS diet HBA1c 9.6, LDL 71, m/c 144 04/17/20 HBa1c 9.4 07/04/20 jardiance 10, rybelsus 7, met 1,000, asa 81 HGB A1c at 9.8% on 09/09/20 LDL 81.4 on 09/09/20 Eye exam-[facility] exam in 219. Encouraged follow up Memory impairment 012906 006 R41.3 memantine 5 Fibromyalgia 024373270 M 79.7 voltaren gel Diabetic n europathy with neurologic complication 307950450 E11.40 gabapentin 800 Hypomagnesemia 715123153 E83.42 mag 1.7 07/04/20 pt will try mag at night time 1.9 on 09/09/20 Continue Mag Anxiety disorder 3376277 06 F41.9 psych Obesity 387489895 E66.9 diet and exercise History of malignant neoplasm of breast 245411071 Z85.[address] Marquez oncologist Seasonal a llergic rhinitis 849115699 J30.2 samson/flut/ dayana Microalbum inuric diabetic nephropathy 083848223 E11.21 irbesartan 150 Vitamin D deficiency 347 89209 E55.9 vitamin d Hypertriglyceridemia 302 791285 E78.1 TG 359 04/17/20 Lovaza 1 Tri on 09/09/20 Noncomplia nce with medication regimen 106807995 Z91.14 education provided for compliance to medication and treatment. Screening for malignant neoplasm of cervix 002251452 Z12.4 Referral to recycle worker Nasal congestion 2745726 0 R09.81 Prescribe Ipratropiu m nasal spray Continue Loratadine and Montelukas t Screening for osteoporosis 927069144 Z13.820 Bone density ordered Body mass index 30+ - obesity 275120501 Z68.34 diet and exercise 93177 DO MARCOS Coughlin [address] [place], [place] [address] 11/12/2020 11:40:29 11/12/2020 12:33:10 Low back pain 492124435 M54.5 ibu 600, Mapap, cycloben 5----->10 mg, meloxicam 15 x-[facility] thoracic [facility] @ [facility] pain mgt referral next ov if needed-p Doing better on Flexeril. Stopped Ibuprofen. Only taking Meloxicam and Tylenol Hypertensive disorder 38 427983 I10 irbesartan 150 BP 120/70 today BP at goal of 117/78 on 11/12/20 Multiple complications due to type 2 diabetes mellitus 182661611 E11.8 NCS diet HBA1c 9.6, LDL 71, m/c 144 04/17/20 HBa1c 9.4 07/04/20 jardiance 10, rybelsus 7, met 1,000, asa 81 HGB A1c at 9.8% on 09/09/20 LDL 81.4 on 09/09/20 Eye exam-[facility] exam in 219. Encouraged follow up Blood sugars fasting in the high 200's, per patient. 11/12/20 Trial bydureon weekly. Creat 0.6 on 06/05/20. No family or self hx of kidney disease, gallbladde r, GI or any hx of pancreatit is. No family hx or self reported thyroid or endocrine neoplasia cancers. Repeat Hgb A1c at next OV-p Memory impairment 670750 006 R41.3 memantine 5 Malignant tumor of breast 106953641 C50.919 Had bilateral mastectomy Sees oncologist -p Adult heal th examination 181045087 Z00.01 normal cpe labs reviewed Hypomagnesemia 755993678 E83.42 mag 1.7 07/04/20 pt will try mag at night time 1.9 on 09/09/20 Continue Mag Repeat Mg-p Seasonal a llergic rhinitis 630874853 J30.2 samson/flut/ dayana Body mass index 30+ - obesity 051115095 Z68.34 diet and exercise Metallic taste 32282304 R43.8 Most likely secondary to high blood sugars Will repeat Hgb A1c as last one on 09/09/20 was 9.8% Vitamin D was 36.10 on 09/09/20 15396 [place] [address] 12/26/2020 14:33:44 12/26/2020 14:39:49 Metallic taste 02563823 R43.8 Most likely secondary to high blood sugars Will repeat Hgb A1c as last one on 09/09/20 was 9.8% Vitamin D was 36.10 on 09/09/20 Multiple complications due to type 2 diabetes mellitus 402044665 E11.8 NCS diet HBA1c 9.6, LDL 71, m/c 144 04/17/20 HBa1c 9.4 07/04/20 jardiance 10, rybelsus 7, met 1,000, asa 81 HGB A1c at 9.8% on 09/09/20 LDL 81.4 on 09/09/20 Eye exam-[facility] exam in 219. Encouraged follow up Blood sugars fasting in the high 200's, per patient. 11/12/20 Trial bydureon weekly. Creat 0.6 on 06/05/20. No family or self hx of kidney disease, gallbladde r, GI or any hx of pancreatit is. No family hx or self reported thyroid or endocrine neoplasia cancers. Repeat Hgb A1c at next OV-p 12/26/20 asa, metformin, bydureon, rybelsus, rosario recheck-p Low back pain 947941663 M54.5 ibu 600, Mapap, cycloben 5----->10 mg, meloxicam 15 x-ray thoracic spine @ [facility] pain mgt referral next ov if needed-p Doing better on Flexeril. Stopped Ibuprofen. Only taking Meloxicam and Tylenol, aung Hypertensive disorder 38 307255 I10 irbesartan 150 BP 120/70 today BP at goal of 117/78 on 11/12/20 Memory impairment 564361 006 R41.3 memantine 5 Malignant tumor of breast 990294985 C50.919 Had bilateral mastectomy Sees oncologist /gets MRI's-p Hypomagnesemia 805803304 E83.42 mag 1.7 07/04/20 pt will try mag at night time 1.9 on 09/09/20 Continue Mag Repeat Mg-p Seasonal a llergic rhinitis 737219573 J30.2 samson/flut/ dayana Body mass index 30+ - obesity 391853460 Z68.34 diet and exercise Screening for malignant neoplasm of cervix 637078336 Z12.4 Referral to recycle worker-p Renewal of prescription 751222626 Z76.0 Anxiety disorder 5794258 06 F41.9 followed by psych Vitamin D deficiency 347 71998 E55.9 vitamin d 80843 David Elliott, [facility] [address] [place] [address] 02/06/2021 08:22:20 02/06/2021 12:12:53 Multiple complications due to type 2 diabetes mellitus 150030400 E11.8 NCS diet HBA1c 9.6, LDL 71, m/c 144 04/17/20 HBa1c 9.4 07/04/20 jardiance 10, rybelsus 7, met 1,000, asa 81 HGB A1c at 9.8% on 09/09/20 LDL 81.4 on 09/09/20 Eye exam-[facility] exam in 219. Encouraged follow up Blood sugars fasting in the high 200's, per patient. 11/12/20 Trial bydureon weekly. Creat 0.6 on 06/05/20. No family or self hx of kidney disease, gallbladde r, GI or any hx of pancreatit is. No family hx or self reported thyroid or endocrine neoplasia cancers. Repeat Hgb A1c at next OV-p 12/26/20 asa, metformin, bydureon, rybelsus, jardiance HBA1c 7.4 m/c 16.5 01/28/21 try to increase exercise- joined workout program Metallic taste 61140924 R43.8 Most likely secondary to high blood sugars Will repeat Hgb A1c as last one on 09/09/20 was 9.8% Vitamin D was 36.10 on 09/09/20 Low back pain 494172126 M54.5 ibu 600, Mapap, cycloben 5----->10 mg, meloxicam 15 x-ray thoracic spine @ [facility] pain mgt referral next ov if needed-p Doing better on Flexeril. Stopped Ibuprofen. Only taking Meloxicam and Tylenol, aung -worse when standing- doing exercise program Hypertensive disorder 38 096494 I10 irbesartan 150 BP 120/70 today BP at goal of 117/78 on 11/12/20 -stable Memory impairment 796399 006 R41.3 memantine 5 Malignant tumor of breast 840206411 C50.919 Had bilateral mastectomy Sees oncologist /gets MRI's-p -yearly Hypomagnesemia 276722702 E83.42 mag 1.7 07/04/20 pt will try mag at night time 1.9 on 09/09/20 Continue Mag Mg 1.7 01/28/21- restart mag Seasonal a llergic rhinitis 228920969 J30.2 samson/flut/ dayana Body mass index 30+ - obesity 153068709 Z68.34 diet and exercise Anxiety disorder 8867791 06 F41.9 followed by psych Vitamin D deficiency 347 28081 E55.9 vitamin d Screening for osteoporosis 271359114 Z13.820 Bone density ordered-p 36631 David Elliott [facility] [address] [place] [address] 03/25/2021 08:37:08 03/25/2021 11:07:28 Hypomagnesemia 266587724 E83.42 mag 1.7 07/04/20 pt will try mag at night time 1.9 on 09/09/20 Continue Mag Mg 1.7 01/28/21- restart mag Multiple complications due to type 2 diabetes mellitus 110124500 E11.8 NCS diet HBA1c 9.6, LDL 71, m/c 144 04/17/20 HBa1c 9.4 07/04/20 jardiance 10, rybelsus 7, met 1,000, asa 81 HGB A1c at 9.8% on 09/09/20 LDL 81.4 on 09/09/20 Eye exam-[facility] exam in 219. Encouraged follow up Blood sugars fasting in the high 200's, per patient. 11/12/20 Trial bydureon weekly. Creat 0.6 on 06/05/20. No family or self hx of kidney disease, gallbladde r, GI or any hx of pancreatit is. No family hx or self reported thyroid or endocrine neoplasia cancers. Repeat Hgb A1c at next OV-p 12/26/20 asa, metformin, bydureon, rybelsus, jardiance HBA1c 7.4 m/c 16.5 01/28/21 try to increase exercise- joined workout programpt was taking met, trulicity, rybelsus, jardiance met 500 bid, jardiance 10, trulicity, asa Metallic taste 73919970 R43.8 Most likely secondary to high blood sugars Will repeat Hgb A1c as last one on 09/09/20 was 9.8% Vitamin D was 36.10 on 09/09/20 Low back pain 860391243 M54.5 ibu 600, Mapap, cycloben 5----->10 mg, meloxicam 15 x-ray thoracic spine @ [facility] pain mgt referral next ov if needed-p Doing better on Flexeril. Stopped Ibuprofen. Only taking Meloxicam and Tylenol, aung -worse when standing- doing exercise program Hypertensive disorder 38 017834 I10 irbesartan 150 BP 120/70 today BP at goal of 117/78 on 11/12/20 -stable Memory impairment 617433 006 R41.3 memantine 5 Malignant tumor of breast 043004242 C50.919 Had bilateral mastectomy Sees oncologist /gets MRI's-p -yearly Seasonal a llergic rhinitis 038933136 J30.2 samson/flut/ dayana Body mass index 30+ - obesity 572647613 Z68.34 diet and exercise Anxiety disorder 1675703 06 F41.9 followed by psych Vitamin D deficiency 347 89239 E55.9 vitamin d 32028 David Elliott [facility] [address] [place] [address] 06/08/2021 08:38:25 06/08/2021 14:00:59 Adult health examination 849091627 Z00.01 normal cpe labs reviewed Active or passive immunization 537930154 Z23 -p Screening mammography of bilateral breasts 1860097532 [address] Marquez for MRI-[phone] Screening for malignant neoplasm of colon 946304308 Z12.11 -[place]ened[place], states had nml results, rpt in 10 yrs Screening for malignant neoplasm of cervix 979539317 Z12.4 Referral to recycle worker-p Screening for osteoporosis 687425686 Z13.820 Bone density ordered- 03/2021 osteopenia Hypertensive disorder 38 947252 I10 irbesartan 150 BP 120/70 today BP at goal of 117/78 on 11/12/20 -stable Hypomagnesemia 072280352 E83.42 mag 1.7 07/04/20 pt will try mag at night time 1.9 on 09/09/20 Continue Mag Mg 1.7 01/28/21- restart mag Multiple complications due to type 2 diabetes mellitus 551165296 E11.8 NCS diet HBA1c 9.6, LDL 71, m/c 144 04/17/20 HBa1c 9.4 07/04/20 jardiance 10, rybelsus 7, met 1,000, asa 81 HGB A1c at 9.8% on 09/09/20 LDL 81.4 on 09/09/20 Eye exam-[facility] exam in 219. Encouraged follow up Blood sugars fasting in the high 200's, per patient. 11/12/20 Trial bydureon weekly. Creat 0.6 on 06/05/20. No family or self hx of kidney disease, gallbladde r, GI or any hx of pancreatit is. No family hx or self reported thyroid or endocrine neoplasia cancers. Repeat Hgb A1c at next OV-p 12/26/20 asa, metformin, bydureon, rybelsus, jardiance HBA1c 7.4 m/c 16.5 01/28/21 try to increase exercise- joined workout programpt was taking met, trulicity, rybelsus, jardiance met 500 bid, jardiance 10, trulicity, [id number] 6.1 m/c [facility] LDL 87.6 06/02/21 Metallic taste 12123328 R43.8 Most likely secondary to high blood sugars Will repeat Hgb A1c as last one on 09/09/20 was 9.8% Vitamin D was 36.10 on 09/09/20 Low back pain 628669131 M54.5 ibu 600, Mapap, cycloben 5----->10 mg, meloxicam 15 x-ray thoracic spine @ [facility] pain mgt referral next ov if needed-p Doing better on Flexeril. Stopped Ibuprofen. Only taking Meloxicam and Tylenol, aung -worse when standing- doing exercise program Memory impairment 362688 006 R41.3 memantine 5 Malignant tumor of breast 653173200 C50.919 Had bilateral mastectomy Sees oncologist /gets MRI's-p -yearly Seasonal a llergic rhinitis 545599606 J30.2 samson/flut/ dayana Body mass index 30+ - obesity 043854034 Z68.34 diet and exercise Anxiety disorder 2547153 06 F41.9 followed by psych Vitamin D deficiency 347 02536 E55.9 vitamin d41 06/02/21 Osteopenia 370312309 M85 .80 ralox, ca/vit d History of malignant neoplasm of breast 043683862 Z85.[address] Marquez oncologist - pt to call for appt Female str ess incontinence 01035541 N39.3 oxybut 5 Health Concerns Section Related Observation LastModified by Organization Detai ls LastModified Time None Recorded Concern Status LastModified by Organization Details LastModified Time None Recorded Advance Directives Directive N: Payers Insurance Date Sequence Insurance Name Policy Number Policy Irene Covered Member ID Ireen Member ID Guarantor Name 05/09/2020 1 [facility] [employer] [facility] (O) [id number] Jyothi Quevedo [id number] Jyothi Quevedo 09/07/2021 1 [place] Jyothi Quevedo [id number] Jyothi Quevedo Notes Date Note Type Note Provider Name and Address Organization Details Recorded Time 11/12/2020 text/html 60 yr old female here today for f/u. C/O metallic taste for the last month or so. Stopped the Mg thinking this was the cause but symptoms continue. Not sure what can be causing her symptoms. States her fasting blood sugars are in the high 200's. Only taking oral medications for her DM. Denies any other issues or concerns. Vaccines update. Labs ordered. Patient needs refill on her medications except the Mag due to the after taste she stopped taking it Pain-level is 0, [employer]- waiting on referral and appointment with [employer] DEXA- has not been scheduled yet XR - last time was in July after a fall in the emergency room Pain Management - not seen ? PT - ? ee -low back pain- ongoing Mapap, cyclobenzaprine 5-very little effect -fibromyalgia - using meds -Anxiety - no Si/Hi -diabetic neuropathy with neurologic complication - using meds -seasonal allergic rhinitis - stable -memory impairment - @baseline -Vit. D deficiency - on suppl -cramp in lower limb - MagOx -HLD - using meds. JEWELS lee [place] - [employer] 11/12/2020 12:48:50 12/26/2020 text/html 60 yo female pre sents for fu- telemed -camera not functioning Needs med refills and [employer] referall DM2- FSBS stable at home LBP- chronic/stable HTN- stable Breast CA- followed by oncology Memory- stable DENNISE lee [place] [employer] 12/26/2020 14:53:15 02/06/2021 text/html 60 yo female pre sents for fu- telemed -camera not working ??[employer]- not booked Needs [facility]- labs done LBP- chronic worse with standing HTN- stable Memory- @baseline Breast CA- followed by oncology Hypomag- not taking Anxiety- followed by psych [place] lee [place] [employer] 02/06/2021 10:14:28 03/25/2021 text/html 60 yo female pre sents for fu- telemed-camera not working [facility]-pDEXA - 03/30/21-pDM2- stable not optimalLBP- chronic worse with standingHTN- stableMemory- @baselineBreast CA- followed by oncologyHypomag- not takingAnxiety- followed by psychhypomag- taking mag DENNISE lee [employer] 03/25/2021 11:08:09 06/08/2021 text/html Annual WellnessReported bypatient.Diet and Nutrition:healthy diet Fracture Risk:no history of fractures; no recent explained fracture; no sudden unexplained fractures; no previous musculoskeletal injuries Physical Activity:exercises on a regular basis; recent increase in physical activity; good physical condition Additional Lifestyle Factors:no tobacco use; no alcohol intake; stopped drinking alcohol Depression Risk:never feels sad, empty, or tearful; no loss of interest in activities; no significant changes in weight; no sleep disturbances or insomnia; no agitation; no loss of energy; no feelings of worthlessness or guilt; no thoughts of suicide; no history of depression; no history of mood disorders Hearing:no loss of hearing Vision:no vision problems 60 yo female presents for CPE- telemed-camera not working CPE labs- reviewed -Pap - KAY u/l [id number] [employer] 04/2021-pt missed appt-Mammo - MRI breast - not done-DEXA - 03/30/2100-sqafjyppme-[place] o - [place], states had nml results, rpt in 10 yrs DENNISE lee [place] - [employer] 06/08/2021 14:00:47 OBGyn Episode No OBEpisode recorded.
--- OUTSIDE RECORDS SUMMARY | 2025-04-25 12:12 | XMS_ITS | Clinical Summary ---
Author Organization [facility] Address [address] [place] [address] Phone Care Team Providers Care Basket Turner Name Role Phone Maru, Jake CLERK CASHIER Primary Care Provider Allergies Active Allergy Reactions Criticality Noted Date Comments Ketorolac 02/08/2022 Patient states she's is only allergic to the pill form not the injection form. Pollen Extracts 05/09/2024 Other Reaction(s): runny nose Tramadol Hives Medium 09/17/2021 Medications acetaminophen (TYLENOL 8 HOUR) 650 mg 8 hr tablet acetaminophen ER 650 mg tablet,extended release TAKE TWO TABLETS BY MOUTH EVERY EIGHT HOURS NEEDED Active amLODIPine-olm esartan (KODY) 5-20 mg per tablet TOME LLOYD TABLETA TODOS LOS D 11/09/19 24 Active ASPIRIN LOW-STRENGTH ORAL Take 1 tablet by mouth 1 (one) time each day. Active aspirin 81 mg EC tablet Take 1 tablet (81 mg total) by mouth. Activ e atorvastatin (LIPITOR) 10 mg tablet TOME LLOYD TABLETA TODOS LOS D 12/10/19 24 Active betamethasone, augmented, (DIPROLENE-AF) 0.05 % cream betamethasone dipropionate 0.05 % topical cream APPLY TO AFFECTED AREA DAILY DIRECTED Active bisacodyL (DULCOLAX) 5 mg EC tablet Take 2 tabs by mouth right before beginning bowel prep. Follow instructions given by office for timing. 03/05/20 24 Active budesonide-for moteroL (Symbicort) 80-4.5 mcg/actuation inhaler INHALE DANDO DOS SOPLIDOS INTO THE LUNGS DOS VECES AL D A 11/15/19 24 Active calcium carbonate-vit D3-min 600 mg calcium- 400 unit tablet calcium carbonate 600 mg-vitamin D3 10 mcg (400 unit) tablet TAKE ONE TABLET BY MOUTH DAILY Active cetirizine (ZyrTEC) 10 mg capsule Take 1 capsule (10 mg total) by mouth 1 (one) time each day. Active cholecalcifero l (VITAMIN D-3) 50 mcg (2,000 unit) capsule TOME 1 C PSULA POR V A ORAL ONCE DAILY 09/30/20 23 Active ciclopirox (PENLAC) 8 % solution ciclopirox 8 % topical solution APPLY TO AFFECTED AREA AT BEDTIME DIRECTED Active clonazePAM (KlonoPIN) 1 mg tablet TOME DOS TABLETAS POR V A ORAL TODOS LOS D 12/11/19 24 Active clonazePAM (KlonoPIN) 2 mg tablet Take 1 tablet (2 mg total) by mouth. Active cyclobenzaprin e (FLEXERIL) 10 mg tablet cyclobenzaprine 10 mg tablet TAKE ONE TABLET BY MOUTH THREE TIMES A DAY UNTIL FINISHED Active dulaglutide (Trulicity) 0.75 mg/0.5 mL pen injector injection Trulicity 0.75 mg/0.5 mL subcutaneous pen injector INJECT 0.5 ML EVERY WEEK BY SUBCUTANEOUS ROUTE. Activ e dulaglutide (Trulicity) 0.75 mg/0.5 mL pen injector injection Inject under the skin. Active DULoxetine (CYMBALTA) [address] capsule Take 1 capsule (20 mg total) by mouth. Activ e DULoxetine (CYMBALTA) [address] capsule duloxetine 30 mg capsule,delayed release TAKE ONE CAPSULE BY MOUTH EVERY MORNING Activ e empagliflozin (Jardiance) 10 mg tablet Take 1 tablet (10 mg total) by mouth 1 (one) time each day. Active empagliflozin (Jardiance) 10 mg tablet Jardiance 10 mg tablet TAKE ONE TABLET BY MOUTH DAILY Active fluticasone propionate (FLONASE) 50 mcg/actuation nasal spray SPRAY 1 SPRAY INTO EACH NOSTRIL TODOS LOS YEUNG 11/11/19 24 Active gabapentin (NEURONTIN) 800 mg tablet Take 1 tablet (800 mg total) by mouth. Activ e glipiZIDE (GLUCOTROL XL) 2.5 mg 24 hr tablet Take 1 tablet (2.5 mg total) by mouth. Activ e ibuprofen (ADVIL,MOTRIN) 800 mg tablet 1 TABLETA CADA OCHO HORAS CUANDO SEA NECESARIO PARA EL DOLOR 11/22/19 24 Active ipratropium (ATROVENT) 0.02 % nebulizer solution ipratropium bromide 42 mcg (0.06 %) nasal spray TWO INHALATIONS THREE TIMES A DAY DIRECTED Active irbesartan (AVAPRO) 150 mg tablet Take 1 tablet (150 mg total) by mouth. Activ e ketoconazole (NIZORAL) 2 % cream ketoconazole 2 % topical cream APPLY TO FACE TWICE A DAY DIRECTED Active ketoconazole (NIZORAL) 2 % shampoo ketoconazole 2 % shampoo APPLY TO SCALP 2XWK, LEAVE ON 5 MINUTES THEN WASH OFF Active loratadine (CLARITIN) 10 mg tablet Allergy Relief (loratadine) 10 mg tablet TAKE ONE TABLET BY MOUTH DAILY Active loratadine (CLARITIN) 10 mg tablet Take 1 tablet (10 mg total) by mouth 1 (one) time each day. Active magnesium oxide (MAG-OX) 400 mg (241.3 elemental magnesium) tablet magnesium oxide 400 mg (241.3 mg magnesium) tablet TAKE ONE TABLET BY MOUTH DAILY Active memantine (NAMENDA) 5 mg tablet memantine 5 mg tablet TAKE ONE TABLET BY MOUTH TWICE A DAY Active metFORMIN (GLUCOPHAGE) 1,000 mg tablet metformin 1,000 mg tablet TAKE ONE TABLET BY MOUTH TWICE A DAY Active metFORMIN (GLUCOPHAGE) 500 mg tablet Take 1 tablet (500 mg total) by mouth. Activ e mirtazapine (REMERON) 15 mg tablet Take 1 tablet (15 mg total) by mouth. Activ e mirtazapine (REMERON) 15 mg tablet Take 1 tablet (15 mg total) by mouth. Activ e mirtazapine (REMERON) 45 mg tablet TOME LLOYD VERENAA EDGAR LOS Odell AL ACOSTARSE 10/09/20 23 Active montelukast (SINGULAIR) 10 mg tablet Take 1 tablet (10 mg total) by mouth at bedtime. Active NIFEdipine (ADALAT CC) 30 mg 24 hr tablet Take 1 tablet (30 mg total) by mouth. Activ e OMEGA-3 FATTY ACIDS ORAL Take by mouth. Acti ve multivitamin (MULTIPLE VITAMINS ORAL) Take 1 tablet by mouth 1 (one) time each day. Active oxyBUTYnin XL (DITROPAN-XL) 5 mg 24 hr tablet oxybutynin chloride ER 5 mg tablet,extended release 24 hr TAKE ONE TABLET BY MOUTH DAILY Active raloxifene (EVISTA) 60 mg tablet Take 1 tablet (60 mg total) by mouth. Activ e temazepam (RESTORIL) 15 mg capsule Take 1 capsule (15 mg total) by mouth. Activ e temazepam (RESTORIL) 30 mg capsule temazepam 30 mg capsule TAKE ONE CAPSULE BY MOUTH AT BEDTIME NEEDED SLEEP Active terbinafine (LamISIL) 1 % cream terbinafine HCl 1 % topical cream APLIQUE CON MODERACI N EL ALLAN AFECTADA DOS VECES AL D A Active CALCIUM CARBONATE ORAL TOME LLOYD TABLETA DOS VECES AL D A 09/27/20 23 Active CHOLECALCIFERO L, VITAMIN D3, ORAL Take by mouth. Activ e GENERIC EXTERNAL MEDICATION Use 1 tablet in the mouth or throat. Active meloxicam (MOBIC) 15 mg tablet Take 1 tablet (15 mg total) by mouth. Activ e multivitamin tablet TOME LLOYD TABLETA TODOS LOS D 09/30/20 23 Active MELATONIN-PYRI DOXINE HCL, B6, ORAL Take 1 tablet by mouth 1 (one) time each day. Active polyethylene glycol (Golytely) 236-22.74-6.74 -5.86 gram solution Take 4L by mouth once for one dose. May substitue any PEG. Starting at 6PM the night before your procedure drink 1 8oz glasses at your own pace until you complete half of the gallon. Finish 2nd half of the gallon 5 hours before your procedure. 4000 mL 08/28/20 24 Active bisacodyL (DULCOLAX) 5 mg EC tablet Take 2 tablets by mouth right before beginning bowel prep. See instructions provided by the office 2 tablet 08/28/20 24 Active polyethylene glycol (Golytely) 236-22.74-6.74 -5.86 gram solution Take 4L by mouth once for one dose. May substitue any PEG. Starting at 6PM the night before your procedure drink 1 8oz glasses at your own pace until you complete half of the gallon. Finish 2nd half of the gallon 5 hours before your procedure. 4000 mL 01/16/20 25 Active bisacodyL (DULCOLAX) 5 mg EC tablet Take 2 tablets by mouth right before beginning bowel prep. See instructions provided by the office 2 tablet 01/16/20 25 Active budesonide-for moteroL (SYMBICORT) 80-4.5 mcg/actuation inhaler Inhale 2 puffs by mouth 2 (two) times a day. Rinse mouth with water after use to reduce aftertaste and incidence of candidiasis. Do not swallow. Active Active Problems Problem Noted Date Diagnosed Date Obesity (BMI 30-39.9) 02/20/2018 Diabetes mellitus ([facility] V24, [facility] V28) 04/2018 Encounters Date Type Department Care Team Description 01/29/2025 11:11 AM EDT Anesthesia Event [facility] Endoscopy [address] [place] [address] Willam Meadows DO 01/29/2025 9:45 AM EDT - 01/29/2025 11:59 PM EDT Hospital Encounter [facility] Endoscopy [address] [place] [address] Viviana Borges DO Elliott, Barbara J, CRNA Dasilva, John E, MD Colon cancer screening Discharge Disposition: Home or Self Care from Last 3 Months Surgical History Surgery Date Site/Laterality Comments HYSTERECTOMY 2003 PROCEDURE:HYSTERECTOMY MASTECTOMY 2013 PROCEDURE:MASTECTOMY;COMMENT:bilateral Medical History Medical History Date Comments Diabetes mellitus ([facility] V24, [facility] V28) DX:Diabetes mellitus ([facility]) Hypertension DX:Hypertension Depression DX:Depression Anxiety Asthma Social History Tobacco Use Types Packs/Day Years Used Date Smoking Tobacco: Never Smokeless Tobacco: Never Alcohol Use Standard Drinks/Week Comments No 0 (1 standard drink = 0.6 oz pur e alcohol) Interpersonal Safety Answer Date Record ed Physical Abuse 01/29/2025 Verbal Abuse 01/29/2025 Comments No Sex and Gender Information Value Date Recorded Sex Assigned at Female 01/29/2025 9:41 AM EDT Legal Sex Female 5:36 AM EST Gender Identity Female 01/29/2025 9:41 AM EDT Sexual Orientation Straight 01/29/2025 9: 41 AM EDT Obstetrics History Last Filed Vital Signs Vital Sign Reading Time Taken Comments Blood Pressure 121/80 01/29/2025 11:45 AM EDT Pulse 83 01/29/2025 11:45 AM EDT Temperature 36.4 C (97.6 F) 01/29/2025 10:44 AM EDT Respiratory Rate 18 01/29/2025 11:45 AM EDT Oxygen Saturation 98% 01/29/2025 11:45 AM EDT Inhaled Oxygen Concentration - - Weight 77.6 kg (171 lb) 01/29/2025 10:44 AM EDT Height 160 cm (5' 3 ) 01/29/2025 10:44 AM EDT Body Mass Index 30.29 01/29/2025 10:44 AM EDT Plan of Treatment Health Maintenance Due Date Last Done Comments Breast Cancer Screening 1960 Diabetes: Annual Foot Exam 1969 Diabetes: Annual Retina Eye Exam 1969 Cervical Cancer Screening: Pap Smear 1980 RSV Immunization Adult Patients (1 - Risk 60-74 years 1-dose series) 2019 Medicare Annual Wellness Visit 09/19/2022 Social Influencers of Health Screening 09/19/2022 Diabetes: Annual GFR (Glomerular Filtration Rate) 12/21/2024 12/22/2023 COVID-19 Vaccine (8 - Pfizer risk 2023- season) 2025 07/19/2024, 08/17/2023, 07/15/2022, Additional history exists Hypertension/CHF/CAD Annual BMP Blood Test 01/29/2025 12/22/2023 Diabetes: Annual Urine Albumin-Creatinine Ratio (uACR) 05/09/2025 05/09/2024, 02/22/2023, 01/26/2022 Diabetes: Blood Sugar Control Test (HGBA1C) 05/09/2025 11/09/2024 Influenza Vaccine (#1) 2025 09/05/2020 Depression Screening 10/19/2025 10/19/2024 Falls Risk Assessment 01/29/2026 01/29/2025 DTaP,Tdap,and Td Vaccines (2 - Td or Tdap) 07/10/2028 07/10/2018 Cholesterol Screening (Lipid Panel) 11/09/2029 11/09/2024, 11/09/2024, 05/09/2024, Additional history exists Colorectal Cancer Screening: Colonoscopy 01/29/2030 01/29/2025 Osteoporosis Screening (Bone Density Screening) 04/10/2031 04/10/2021 Zoster Vaccines Completed 10/14/2020, 06/11/2020 Hepatitis C Screening Completed 07/01/2023 Pneumococcal Vaccine: 50+ Years Completed 07/19/2024, 07/10/2018 Pneumococcal Vaccine: Pediatrics (0 to 5 Years) and At-Risk Patients (6 to 49 Years) Completed 07/19/2024, 07/10/2018 HIB Vaccines Aged Out No longer eligi ble based on patient's age to complete this topic HPV Vaccines Aged Out No longer eligi ble based on patient's age to complete this topic Hepatitis A Vaccines Aged Out No long er eligible based on patient's age to complete this topic Hepatitis B Vaccines Aged Out No long er eligible based on patient's age to complete this topic IPV Vaccines Aged Out No longer eligi ble based on patient's age to complete this topic MMR Vaccines Aged Out No longer eligi ble based on patient's age to complete this topic Meningococcal ACWY Vaccine Aged Out N o longer eligible based on patient's age to complete this topic Meningococcal B Vaccine Aged Out No l onger eligible based on patient's age to complete this topic RSV Immunization Patients Under 20 months Aged Out No longer eligible based on patient's age to complete this topic Varicella Vaccines Aged Out No longer eligible based on patient's age to complete this topic Procedures Procedure Name Priority Date/Time Associated Diagnosis Comments COLONOSCOPY Routine 01/29/2025 11:24 AM EDT Colon cancer screening TISSUE EXAM Routine 01/29/2025 11:23 AM EDT Colon cancer screening [facility] DEXA AXIAL SKELETON Routine 04/10/2021 10:24 AM EDT Other specified disorders of bone density and structure, other site from Last 3 Months or Most Recently Relevant to Health Maintenance Results * COLONOSCOPY Anesthesia - MAC; [facility] ENDOSCOPY (01/29/2025 11:24 AM EDT) Anatomical Region Laterality Modality Endoscopy 01/29/2025 11:1 0 AM EDT Impressions 01/29/2025 11:27 AM EDT - One 5 mm polyp in the ascending colon, removed with a cold snare. Resected and retrieved. Recommendation: - - Discharge patient to home. - High fiber diet. - Continue present medications. - Await pathology results. - Repeat colonoscopy for surveillance based on pathology results. Narrative 01/29/2025 11:27 AM EDT [facility] GI Patient Name: Jyothi Lew Procedure Date: 01/29/2025 11:10 AM Date of : 1960 Age: 64 Gender: Female Note Status: Finalized Attending MD: Viviana Borges DO, [id number] Procedure Date No Time: 01/29/2025 Procedure: Colonoscopy Indications: Screening for colorectal malignant neoplasm Providers: Viviana Borges DO Referring MD: ALEC Reyes Medicines: Monitored Anesthesia Care Complications: No immediate complications. Estimated blood loss: Minimal. Estimated Blood Loss: Estimated blood loss was minimal. Procedure: Pre-Anesthesia Assessment: - - Prior to the procedure, a History and Physical was performed, and patient medications and allergies were reviewed. The patient is competent. The risks and benefits of the procedure and the sedation options and risks were discussed with the patient. All questions were answered and informed consent was obtained. Patient identification and proposed procedure were verified by the physician, the nurse, the anesthesiologist, the grading clerk and the automobile glass technician in the pre-procedure area in the endoscopy suite. Mental Status Examination: alert and oriented. Airway Examination: normal oropharyngeal airway and neck mobility. Respiratory Examination: clear to auscultation. CV Examination: normal. Prophylactic Antibiotics: The patient does not require prophylactic antibiotics. Prior Anticoagulants: The patient has taken no anticoagulant or antiplatelet agents. ASA Grade Assessment: II - A patient with severe systemic disease. After reviewing the risks and benefits, the patient was deemed in satisfactory condition to undergo the procedure. The anesthesia plan was to use monitored anesthesia care (MAC). Immediately prior to administration of medications, the patient was re-assessed for adequacy to receive sedatives. The heart rate, respiratory rate, oxygen saturations, blood pressure, adequacy of pulmonary ventilation, and response to care were monitored throughout the procedure. The physical status of the patient was re-assessed after the procedure. After I obtained informed consent, the scope was passed under direct vision. Throughout the procedure, the patient's blood pressure, pulse, and oxygen saturations were monitored continuously. The Olympus Pediatric Colonoscope was introduced through the anus and advanced to the cecum, identified by appendiceal orifice and ileocecal valve. The colonoscopy was performed without difficulty. The patient tolerated the procedure well. The quality of the bowel preparation was good. Findings: The perianal and digital rectal examinations were normal. A 5 mm polyp was found in the ascending colon. The polyp was sessile. The polyp was removed with a cold snare. Resection and retrieval were complete. Verification of patient identification for the specimen was done. Estimated blood loss was minimal. Procedure Code(s): --- Professional --- 18840, Colonoscopy, flexible; with removal of tumor(s), polyp(s), or other lesion(s) by snare technique Diagnosis Code(s): --- Professional --- Z12.11, Encounter for screening for malignant neoplasm of colon D12.2, Benign neoplasm of ascending colon CPT copyright 2020 [employer]. All rights reserved. The codes documented in this report are preliminary and upon gang mower operator review may be revised to meet current compliance requirements. VIVIANA Borges DO 01/29/2025 11:27:28 AM This report has been signed electronically.Viviana Borges DO Number of Addenda: 0 Note Initiated On: 01/29/2025 11:10 AM Scope Withdrawal Time: 0 hours 8 minutes 1 second Scope In: 11:15:56 AM Scope Out: 11:26:44 AM Endoscopy Department at [facility] - [address] [place] [id number] Procedure Note Viviana Borges DO - 01/29/2025 [facility] GI Patient Name: Jyothi Lew Procedure Date: 01/29/2025 11:10 AM Date of : 1960 Age: 64 Gender: Female Note Status: Finalized Attending MD: Viviana Borges DO, [id number] Procedure Date No Time: 01/29/2025 Procedure: Colonoscopy Indications: Screening for colorectal malignant neoplasm Providers: Viviana Borges DO Referring MD: ALEC Reyes Medicines: Monitored Anesthesia Care Complications: No immediate complications. Estimated blood loss: Minimal. Estimated Blood Loss: Estimated blood loss was minimal. Procedure: Pre-Anesthesia Assessment: - - Prior to the procedure, a History and Physicalwas performed, and patient medications and allergieswere reviewed. The patient is competent. The risks and benefits of the procedure and the sedation optionsand risks were discussed with the patient. Allquestions were answered and informed consent was obtained. Patient identification and proposed procedure were verified by the physician, the nurse, the anesthesiologist, the grading clerk and thetechnician in the pre-procedure area in the endoscopy suite. Mental Status Examination: alert and oriented.Airway Examination: normal oropharyngeal airway and neck mobility. Respiratory Examination: clear to auscultation. CV Examination: normal. Prophylactic Antibiotics: The patient does not requireprophylactic antibiotics. Prior Anticoagulants: The patient has taken no anticoagulant or antiplatelet agents. ASA Grade Assessment: II - A patient with severesystemic disease. After reviewing the risks and benefits,the patient was deemed in satisfactory condition to undergo the procedure. The anesthesia plan was touse monitored anesthesia care (MAC). Immediately priorto administration of medications, the patient was re-assessed for adequacy to receive sedatives. The heart rate, respiratory rate, oxygen saturations, blood pressure, adequacy of pulmonary ventilation,and response to care were monitored throughout the procedure. The physical status of the patient was re-assessed after the procedure. After I obtained informed consent, the scope was passed under direct vision. Throughout theprocedure, the patient's blood pressure, pulse, and oxygen saturations were monitored continuously. TheOlympus Pediatric Colonoscope was introduced through theanus and advanced to the cecum, identified byappendiceal orifice and ileocecal valve. The colonoscopy was performed without difficulty. The patient tolerated the procedure well. The quality of the bowel preparation was good. Findings: The perianal and digital rectal examinations were normal. A 5 mm polyp was found in the ascending colon. The polyp was sessile. The polyp was removed with acold snare. Resection and retrieval were complete. Verification of patient identification for the specimen was done. Estimated blood loss wasminimal. Procedure Code(s): --- Professional --- 02135, Colonoscopy, flexible; with removal of tumor(s), polyp(s), or other lesion(s) by snare technique Diagnosis Code(s): --- Professional --- Z12.11, Encounter for screening for malignantneoplasm of colon D12.2, Benign neoplasm of ascending colon CPT copyright 2020 [employer]. All rights reserved. The codes documented in this report are preliminary and upon gang mower operator reviewmay be revised to meet current compliance requirements. VIVIANA Borges DO 01/29/2025 11:27:28 AM This report has been signed electronically.Viviana Borges DO Number of Addenda: 0 Note Initiated On: 01/29/2025 11:10 AM Scope Withdrawal Time: 0 hours 8 minutes 1 second Scope In: 11:15:56 AM Scope Out: 11:26:44 AM Endoscopy Department at [facility] - [address] [place] [id number] IMPRESSION: - One 5 mm polyp in the ascending colon, removed with a cold snare. Resected and retrieved. Recommendation: - - Discharge patient to home. - High fiber diet. - Continue present medications. - Await pathology results. - Repeat colonoscopy for surveillance based on pathology results. Viviana Borges DO GI~PROCEDURE ORDERABLES Final Re sult * Tissue exam (01/29/2025 11:23 AM EDT) Final Diagnosis Ascending Colon, polyp: Tubular adenoma, fragmented. Separate fragments of benign colonic mucosa. 01/30/2025 10:52 AM EDT [facility] Gross Description A. Large Intestine, Right/Ascend ing Colon, polyp x1: Labeled polyp x 1 ascend colon . Received in green-cameron formalin, is a 1.0 x 0.3 x 0.1 cm aggregate of soft to friable, cameron-red tissue fragments and fecal/food debris, which is wrapped in paper and submitted in toto in one cassette, multiple pieces, multiple levels. TS 01/30/2025 10:52 AM EDT [facility] Disclaimer Unless otherwise specified, all tissue is 10% NB formalin fixed and paraffin embedded. 01/30/2025 10:52 AM EDT [facility] Tissue Ascending colon structure / Unknown 01/29/2025 11:23 AM EDT 01/29/2025 12:22 PM EDT us Viviana Jony DO LAB PATHOLOGY ORDERABLES Final R esult [facility] [address] [place] [address], [place] [phone] * [facility] DEXA AXIAL SKELETON (04/10/2021 10:24 AM EDT) Anatomical Region Laterality Modality Mammography 04/10/2021 9:19 AM EDT Narrative 04/10/2021 10:24 AM EDT [facility] Diagnostic Imaging Department [address] [place] [address] Patient: JYOTHI LEW D.O.B./Age/Sex: 1960 - 60 - F Unit#: [id number] [facility] Ordering Physician: JACOB BETHEA DO [facility] Dexa Axial Skeleton - 04/10/21 - 1006 HISTORY: The patient is a 60-year-old postmenopausal female with clinical concern for metabolic bone disease. FINDINGS: Dual energy x-ray absorptiometry of the lumbar spine and femurs is performed. The mean bone mineral density at L1-L4 is 0.976 gm/cm2 which is 83% of that of young normals and 91% of that of age matched controls. This yields a T-score of -1.7 and a Z-score of -0.8 which is diagnostic of osteopenia. The mean bone mineral density of the femurs bilaterally is 0.897 gm/cm2 which is 89% of that of young normals and 97% of that of age matched controls. This yields a T-score of -0.9 and a Z-score of -0.2 and there is therefore no evidence of osteoporosis or osteopenia here. However, the T-score of the right femoral neck is -1.2 and that of the left femoral neck is -1.2 which is diagnostic of osteopenia. IMPRESSION: 1. Osteopenia. 2. FRAX analysis yields a 10-year probability of major osteoporotic fracture of 4.1% and a 10-year probability of hip fracture of 0.3%. Code 46512 Dictating Physician: YOANA BAZZI MD Electronically Signed by: YOANA BAZZI MD Dic Date/Time: 04/10/21 1023 Sign date/Time: 04/10/21 1024 Procedure Note Yoana Bazzi MD - 10/05/2022 [facility] Diagnostic Imaging Department [address] [place] [address] Patient: JYOTHI LWE D.O.B./Age/Sex: 1960 - 60 - F Unit#: [id number] Location/Status: [facility] Mnemonic[facility] Ordering Physician: JACOB BETHEA DO [facility] Dexa Axial Skeleton - 04/10/21 - 1007 HISTORY: The patient is a 60-year-old postmenopausal female withclinical concern for metabolic bone disease. FINDINGS: Dual energy x-ray absorptiometry of the lumbar spine and femursis performed. The mean bone mineral density at L1-L4 is 0.976 gm/cm2 which is83% of that of young normals and 91% of that of age matched controls. Thisyields a T-score of -1.7 and a Z-score of -0.8 which is diagnostic of osteopenia. The mean bone mineral density of the femurs bilaterally is 0.897 gm/am7idewk is 89% of that of young normals and 97% of that of age matched controls.This yields a T-score of -0.9 and a Z-score of -0.2 and there is therefore no evidence of osteoporosis or osteopenia here. However, the T-score of theright femoral neck is -1.2 and that of the left femoral neck is -1.2 which is diagnostic of osteopenia. IMPRESSION: 1. Osteopenia. 2. FRAX analysis yields a 10-year probability of major osteoporoticfracture of 4.1% and a 10-year probability of hip fracture of 0.3%. Code 83693 Dictating Physician: YOANA BAZZI MD Electronically Signed by: YOANA BAZZI MD Dic Date/Time: 04/10/21 1023 Sign date/Time: 04/10/21 1024 Jacob Bethea DO IMG BI PROCEDURES Final Result from Last 3 Months or Most Recently Relevant to Health Maintenance Insurance [employer] Care Teams Basket Turner Relationship Specialty Start Date End Date Jake Mahoney FNP [facility] [place] [id number] PCP - General 12/26/23
--- OUTSIDE RECORDS SUMMARY | 2025-04-25 12:12 | XMS_ITS | Clinical Summary ---
Author Organization [facility] Address [address] [place] [address] Care Team Providers Care Supervisor Poultry Hatchery Name Role Phone Jake Mahoney MATERIAL REQUIREMENTS WORKER-C Primary Care Provider [phone] Source Comments PLEASE NOTE, if this patient is a minor, it may be UNLAWFUL to discuss sensitive information that is contained in these records (such as FAMILY PLANNING, MENTAL HEALTH or SUBSTANCE ABUSE) with the minor patient's parent or other person without the patient's specific authorization.[facility] Allergies Active Allergy Reactions Criticality Noted Date Comments Ketorolac 02/08/2022 Patient states she's is only allergic to the pill form not the injection form. Pollen 05/09/2024 Other Reaction(s): runny nose Medications blood sugar diagnostic (FREESTYLE TEST) strips Dx.E11.9 FREESTYLE LITE USE TWICE A DAY DIRECTED 100 Each 5 12/17/19 23 Active MISCELLANEOUS MEDICAL SUPPLY MISCIndications:At moderate risk for fall Bathroom step stool x99 years 5'3 183 lbs 1 Each 07/01/20 23 Active MISCELLANEOUS MEDICAL SUPPLY MISCIndications:At moderate risk for fall Tub grab bars for inside and outside of tub x99 years 5'3 183 lbs 2 Each 08/17/20 23 Active MISCELLANEOUS MEDICAL SUPPLY MISCIndications:At moderate risk for fall by miscellaneous route daily. Shower chair x99 years 5'3 183 lbs 1 Each 08/17/20 23 Active inhalational spacing deviceIndications: Exacerbation of asthma, unspecified asthma severity, unspecified whether persistent ([facility]),Allergic rhinitis, unspecified seasonality, unspecified trigger UAD 1 Each 11/16/19 24 Active clonazePAM (KLONOPIN) 1 mg tablet TOME DOS TABLETAS POR V A ORAL TODOS LOS D Authorized by: RUPALI LEES 02/20/20 24 Active DULoxetine (CYMBALTA) [address] capsule Take 1 Capsule by mouth every morning 90 Capsule 1 05/04/20 24 Active fluticasone (FLONASE) 50 mcg/actuation nasal sprayIndications:N nila congestion SPRAY 1 SPRAY INTO EACH NOSTRIL TO YEUNG 32 mL 1 05/04/20 24 Active mirtazapine (REMERON) 45 mg tablet Take 1 Tablet by mouth nightly at bedtime 90 Tablet 1 05/04/20 24 Active lancets (FREESTYLE LANCETS) 28 gauge USE TO TEST BLOOD SUGAR TWICE DAILY DIRECTED 100 Each 1 05/04/20 24 Active acetaminophen (TYLENOL) 500 mg tablet Take 2 Tablets by mouth every 6 (six) hours as needed for pain 90 Tablet 1 05/04/20 24 Active albuterol (PROVENTIL) 2.5 mg /3 mL (0.083 %) nebulizer solutionIndication s:Seasonal allergic rhinitis due to other allergic trigger Take 3 mL by nebulization every 6 (six) hours as needed for wheezing 75 mL 3 05/09/20 24 Active VENTOLIN HFA 90 mcg/actuation inhalerIndications :Allergic rhinitis, unspecified seasonality, unspecified trigger,Exacerbati on of asthma, unspecified asthma severity, unspecified whether persistent ([facility]) INHALE TWO puffs into THE lungs EVERY 4 HOURS NEEDED FOR SHORTNESS OF BREATH 18 g 1 05/25/20 24 Active DAILY-SURESH, WITH FOLIC ACID, 400 mcg tabIndications:H/O bilateral mastectomy TOME 1 TABLETA POR VIA ORAL TODOS LOS YEUNG 90 Tablet 1 07/05/20 24 Active calcium carbonate-vitamin D3 600 mg-10 mcg (400 unit) tablet Take 1 Tablet by mouth 2 (two) times daily 180 Tablet 3 07/19/20 24 Active omega-3 acid ethyl esters (LOVAZA) 1 gram capsuleIndications :Mixed hyperlipidemia Take 2 Capsules by mouth 2 (two) times daily 360 Capsule 3 07/19/20 24 Active diclofenac sodium (VOLTAREN) 1 % gel APPLY TOPICALLY TO AFFECTED AREA TWICE A DAY NEEDED FOR PAIN 100 g 3 07/19/20 24 Active loratadine (CLARITIN) 10 mg tablet TAKE ONE TABLET BY MOUTH EVERY MORNING 90 Tablet 1 09/18/20 24 Active amlodipine-olmesar cameron (KODY) 5-20 mg per tabletIndications: Essential hypertension, benign Take 1 Tablet by mouth every morning For blood pressure. *please talk to Myl for blister pack and delivery* 90 Tablet 3 11/02/19 25 Active atorvastatin (LIPITOR) 10 mg tabletIndications: Hyperlipidemia LDL goal <100 Take 1 Tablet by mouth nightly at bedtime *please talk to Myl for blister pack and delivery* 90 Tablet 1 11/02/19 25 Active JARDIANCE 10 mg tab TAKE ONE TABLET BY MOUTH EVERY MORNING 30 Tablet 5 11/08/19 25 Active montelukast (SINGULAIR) 10 mg tabletIndications: Allergic rhinitis, unspecified seasonality, unspecified trigger,Exacerbati on of asthma, unspecified asthma severity, unspecified whether persistent ([facility]) TAKE ONE TABLET BY MOUTH DAILY AT BEDTIME 90 Tablet 1 11/08/19 25 Active MISCELLANEOUS MEDICAL SUPPLY MISCIndications:Di abetes mellitus type 2, diet-controlled ([facility]),Other polyneuropathy by miscellaneous route daily Please dispense 1 shower transfer bench for lifetime use for hx of type II diabetes and gait instability 1 Each 12/20/19 25 Active gabapentin (NEURONTIN) 800 mg tablet TAKE ONE TABLET BY MOUTH TWICE DAILY 180 Tablet 1 01/09/20 25 Active budesonide-formote roL (SYMBICORT) 160-4.5 mcg/actuation inhalerIndications :Mild intermittent asthma, unspecified whether complicated ([facility]),Exacerba tion of asthma, unspecified asthma severity, unspecified whether persistent ([facility]) Inhale 2 Puffs into the lungs 2 (two) times daily 10.2 g 2 01/16/20 25 Active nebulizer and compressorIndicati ons:Mild intermittent asthma, unspecified whether complicated ([facility]) Please dispense 1 nebulizer UAD x 99 years; dispense nebulizer and tubing and mouthpiece/mask 1 Each 1 01/16/20 25 Active dulaglutide (TRULICITY) 0.75 mg/0.5 mL pen injectorIndication s:Diabetes mellitus without complication ([facility]) inject 0.75 MG UNDER THE INTO THE SKIN ONCE WEEKLY 6 mL 1 02/27/20 Active Active Problems Problem Noted Date Diagnosed Date Hyperlipidemia LDL goal <100 11/02/2024 Mild intermittent asthma ([facility]) 05/09/2024 Food insecurity 03/20/2024 Financial difficulties 03/20/2024 Unsatisfactory living conditions 03/20/2024 Seasonal allergic rhinitis 07/28/2020 Status post hysterectomy 05/09/2020 Class 1 obesity due to exces s calories with serious comorbidity and body mass index (BMI) of 30.0 to 30.9 in adult 05/08/2020 Essential hypertension, benign 11/10/2017 Diabetes mellitus type 2, diet-controlled ([facility]) 11/10/2017 Malignant neoplasm of breast ([facility]) Status post bilateral mastectomy 11/10/2017 Panic disorder 11/10/2017 Overview (12/22/2023): Has psychiatrist [facility] and counselorRadha Primary insomnia 11/10/2017 Peripheral neuropathy 11/10/2017 Encounters Date Type Department Care Team Description 04/10/2025 1:00 PM EDT Telemedicine Visit [facility] [address] [place] [phone] Herrera Walsh, PharmD 03/19/2025 10:20 AM EDT Office Visit [facility] Dental [address] [place] [phone] Guillermo Jimenes, [facility] from Last 3 Months Immunizations Immunization Administration Dates Next Due Flu, Preservative Free 09/05/2020 Moderna COVID-19 (Spikevax), Mrna, Lnp-s, Pf, 50 Mcg/0.5 Ml, 12yr+ 08/17/2023 PFIZER COVID VACCINE, PURPLE CAP, 12+ ,09/22/2021,02/09/2021,01/19 PNEUMOCOCCAL CONJUGATE PCV 2 0 (Prevnar 20) 07/19/2024 PNEUMOCOCCAL POLYSACCHARIDE PPV23 (Pneumovax 23) 07/10/2018 Pfizer COVID-19 (Comirnaty), Mrna, Lnp-s, Pf, Colten-sucrose, 30 Mcg/0.3 Ml, 12yr+ 07/19/2024 Pfizer-BioNTCompetitor COVID-19 Vac cine Bivalent, (KING PFIZER-BIONTECH COVID-19 VACCINE BIVALENT, (KING CAP 07/15/2022 TDAP 07/10/2018 ZOSTER VACCINE, RECOMBINANT (SHINGRIX) 0,06/11/2020 Family History Medical History Relation Name Comments Cancer Mother uterus cancer Mother Relation Name Status Comments Mother Social History Tobacco Use Types Packs/Day Years Used Date Smoking Tobacco: Never Smokeless Tobacco: Never Tobacco Cessation:Counseling Given: Not Answered Alcohol Use Standard Drinks/Week Comments No 0 (1 standard drink = 0.6 oz pur e alcohol) Social Connections Answer Date Recorded Connectedness 1 03/20/2024 Financial Resource Strain Answer Date R ecorded Financial Resource Strain 2 2023 Stress Answer Date Recorded Stress 1 03/20/2024 Physical Activity Answer Date Recorded Physical Activity 0 11/04/2021 Food Insecurity Answer Date Recorded Food 2 03/20/2024 Transportation Needs Answer Date Record ed Transportation 1 03/20/2024 Housing Stability Answer Date Recorded Housing 2 03/20/2024 Safety and Environment Answer Date Noel rded Safety 1 03/20/2024 Utilities Answer Date Recorded Utilities 2 03/20/2024 Employment Answer Date Recorded Stress 0 01/26/2022 Comments No Sex and Gender Information Value Date Recorded Sex Assigned at Female 11/07/2017 12:40 PM PST Legal Sex Female 7:46 AM PDT Gender Identity Female 11/07/2017 12:40 PM PST Sexual Orientation Straight 11/07/2017 12 :40 PM PST Last Filed Vital Signs Vital Sign Reading Time Taken Comments Blood Pressure 120/80 01/15/2025 1:00 PM EDT Pulse 71 01/15/2025 1:00 PM EDT Temperature 37 C (98.6 F) 01/15/2025 1:00 PM EDT Respiratory Rate 16 01/15/2025 1:00 PM EDT Oxygen Saturation 99% 01/15/2025 1:00 PM EDT Inhaled Oxygen Concentration - - Weight 77.7 kg (171 lb 6.4 oz) 01/15/2025 1:00 P M EDT Height 160 cm (5' 3 ) 01/15/2025 1:00 PM EDT Body Mass Index 30.36 01/15/2025 1:00 PM EDT Plan of Treatment Upcoming Encounters Date Type Department Care Team (Late st Contact Info) Description 05/01/2025 1:20 PM EDT Office Visit [facility] [address] [place] [phone] Ron West, YuriD [address] [place] [address] Francesca Do [address] [place] [address] 09/20/2025 1:00 PM EST Office Visit [facility] Dental [address] [place] [phone] [place] [address] Health Maintenance Due Date Last Done Comments Anxiety Screening 1959 Retinopathy Screening 1972 Medicare Annual Wellness Visit 1977 CT Colonography 2004 FIT/gFOBT 2004 Fecal DNA 2004 Flexible Sigmoidoscopy 2004 Colonoscopy 11/08/2017 11/08/2012 Colorectal Cancer Screening 11/08/2017 Diabetes Foot Exam 09/16/2023 09/16/2022 Annual Wellness (Adult): Indicated (All Coverage) 12/21/2024 12/22/2023, 09/16/2022, 11/10/2017 Serum Creatinine 12/21/2024 12/22/2023, , 07/15/2022, Additional history exists Vep-[id number] ( season) 2025 07/19/2024, 08/17/2023, 07/15/2022, Additional history exists Hemoglobin A1c 05/09/2025 11/09/2024, 072 01/2024, 12/22/2023, Additional history exists Urine Albumin Creatinine Rat io Screening 05/09/2025 05/09/2024, 02/22/2023, 01/26/2022, Additional history exists Imm-Influenza (#1) 2025 09/05/2020 Tobacco Screening 07/19/2025 07/19/2024, , 05/02/2024, Additional history exists Dental Prophy 09/20/2025 03/19/2025 Falls Prevention 11/09/2025 11/09/2024 Lipid Screening 11/09/2025 11/09/2024, 04/17, 12/22/2023, Additional history exists Dental BW 03/21/2026 03/19/2025 Dental Examination 03/21/2026 03/19/2025 Dental Perio Charting 03/21/2026 03/19/2025 Imm-DTaP/Tdap/Td (2 - Td or Tdap) 07/10/2028 018 Dental FMX/Pano 03/21/2030 03/19/2025 Imm-Zoster, Recombinant Completed 10/14/2020, 06/11 Bone Density Screening Completed 04/10/2021, 2020 HIV Screening Completed 07/01/2023, 01/15, 11/10/2017 Hepatitis C Screening Completed 07/01/2023 , 01/26/2022, 11/10/2017 Imm-Pneumococcal 50+ Completed 07/19/2024, 07/10/20 Depression Annual Screen Completed 10/19/2024, 04/2024 Alcohol and Drug Screen Completed 11/09/19, 12/22/2023, 02/22/2023, Additional history exists Breast Cancer Screening (Mammogram) Discontinued Procedures Procedure Name Priority Date/Time Associated Diagnosis Comments DENTAL CASE MANAGEMENT - MOTIVATIONAL INTV Routine 03/19/2025 10:20 AM EDT Encounter for dental examination PROPHYLAXIS - ADULT Routine 03/19/2025 1 0:20 AM EDT Encounter for dental examination INTRAORAL - COMP SERIES OF RADIOGRAPHIC IMAGES Routine 03/19/2025 10:20 AM EDT Encounter for dental examination COMP ORAL EVALUATION - NEW/ESTABLISHED PATIENT Routine 03/19/2025 10:20 AM EDT Encounter for dental examination CARIES RISK ASSESSMENT & DOC FINDING MOD RISK Routine 03/19/2025 10:20 AM EDT Encounter for dental examination NUTRITIONAL COUNSELING CONTROL OF DENTAL DISEASE Routine 03/19/2025 10:20 AM EDT Encounter for dental examination ORAL HYGIENE INSTRUCTIONS Routine 03/19/2025 10:20 AM EDT Encounter for dental examination ORAL CANCER SCREENING Routine 03/19/2025 10:20 AM EDT Encounter for dental examination CASE PRESENTATION SUBS DTL & EXTENSIVE TX PLN Routine 03/19/2025 10:20 AM EDT Encounter for dental examination 18 CROWN - PORCELAIN/CERAMIC Routine 03/19/2025 12:00 AM EDT 15 ROOT CANAL - WISDOM (NO BILLABLE) Routine 03/19/2025 12:00 AM EDT 15 MODL COMPOSITE - WISDOM (NON BILLABLE) Routine 03/19/2025 12:00 AM EDT 12 DO COMPOSITE - WISDOM (NON BILLABLE) Routine 03/19/2025 12:00 AM EDT 3 ROOT CANAL - WISDOM (NO BILLABLE) Routine 03/19/2025 12:00 AM EDT 3 CROWN - PORCELAIN FUSED PREDOMINANTLY BASE METAL Routine 03/19/2025 12:00 AM EDT 28 CROWN - PORCELAIN FUSED PREDOMINANTLY BASE METAL Routine 03/19/2025 12:00 AM EDT 29 CROWN - PORCELAIN FUSED PREDOMINANTLY BASE METAL Routine 03/19/2025 12:00 AM EDT 30 AMALGAM - WISDOM (NON BILLABLE) Routine 03/19/2025 12:00 AM EDT 31 MOB AMALGAM - WISDOM (NON BILLABLE) Routine 03/19/2025 12:00 AM EDT 19 JAVY AMALGAM - WISDOM (NON BILLABLE) Routine 03/19/2025 12:00 AM EDT 14 MODL AMALGAM - WISDOM (NON BILLABLE) Routine 03/19/2025 12:00 AM EDT 13 DO AMALGAM - WISDOM (NON BILLABLE) Routine 03/19/2025 12:00 AM EDT 5 DO AMALGAM - WISDOM (NON BILLABLE) Routine 03/19/2025 12:00 AM EDT 4 MO AMALGAM - WISDOM (NON BILLABLE) Routine 03/19/2025 12:00 AM EDT 2 O AMALGAM - WISDOM (NON BILLABLE) Routine 03/19/2025 12:00 AM EDT LIPID PANEL Routine 11/09/2024 11:46 AM EST Diabetes mellitus type 2, diet-controlled ([facility]) HEMOGLOBIN GLYCOSYLATED A1C Routine 11/09/2024 11:46 AM EST Diabetes mellitus type 2, diet-controlled (HCC-CMS) MICROALBUMIN/CREATININ E RATIO, URINE, RANDOM Routine 05/09/2024 10:35 AM EDT Diabetes mellitus type 2, diet-controlled (HCC-CMS) COMPREHENSIVE METABOLIC PANEL Routine 12/22/2023 1:28 PM EST Routine general medical examination at a health care facility HIV 1/2 AG & AB W/RFLX (4TH GEN) Routine 07/01/2023 9:42 AM EDT Screening examination for venereal disease HEPATITIS C AB W/RFLX HCV RNA, QT, RT PCR Routine 07/01/2023 9:42 AM EDT Screening examination for venereal disease HISTORIC DEXA SCAN 04/10/2021 12 :00 AM EDT COLONOSCOPY Routine 11/08/2012 3:03 PM EST from Last 3 Months or Most Recently Relevant to Health Maintenance Results * (ABNORMAL) HEMOGLOBIN GLYCOSYLATED A1C (11/09/2024 11:46 AM EST) HEMOGLOBIN A1C 7.0(H) <5.7 % of total Hgb [facility] Comment: For someone without known diabetes, a hemoglobin A1c value of 6.5% or greater indicates that they may have diabetes and this should be confirmed with a follow-up test. For someone with known diabetes, a value <7% indicates that their diabetes is well controlled and a value greater than or equal to 7% indicates suboptimal control. A1c targets should be individualized based on duration of diabetes, age, comorbid conditions, and other considerations. Currently, no consensus exists regarding use of hemoglobin A1c for diagnosis of diabetes for children. Blood Blood / Unknown 11/09/2024 1 1:46 AM EST 11/09/2024 11:46 AM EST Narrative [facility] - 11/10/2024 4:09 AM EST FASTING:NO Jake Mahoney MATERIAL REQUIREMENTS WORKER-C LAB - BLOOD DRAW Edited R esult - Final Performing Organization Address [facility] Co de Phone Number [facility] [address] [address], [facility] [address] [address] * (ABNORMAL) LIPID PANEL (11/09/2024 11:46 AM EST) CHOLESTEROL, TOTAL 146 <200 mg/dL [facility] HDL CHOLESTEROL 48(L) > OR = 50 mg/dL [facility] TRIGLYCERIDES 198(H) <150 mg/dL [facility] LDL-CHOLESTEROL 71 99 mg/dL (calc) [facility] Comment: Reference range: <100 Desirable range <100 mg/dL for primary prevention; <70 mg/dL for patients with CHD or diabetic patients with > or = 2 CHD risk factors. LDL-C is now calculated using the Cristobal calculation, which is a validated novel method providing better accuracy than the Friedewald equation in the estimation of LDL-C. Demar SS et al. KAUSHAL. 2013;310(19): 5795-9808 (http://education.Sumbola/faq/ROY512) CHOL/HDLC RATIO 3.0 <5.0 (calc) [facility] NON-HDL CHOLESTEROL 98 <130 mg/dL (calc) [facility] Comment: For patients with diabetes plus 1 major ASCVD risk factor, treating to a non-HDL-C goal of <100 mg/dL (LDL-C of <70 mg/dL) is considered a therapeutic option. Blood Blood / Unknown 11/09/2024 1 1:46 AM EST 11/09/2024 11:46 AM EST Narrative [facility] - 11/10/2024 4:09 AM EST FASTING:NO Jake Mahoney MATERIAL REQUIREMENTS WORKER-C LAB - BLOOD DRAW Final Re sult Performing Organization Address [facility] Co de Phone Number [facility] [address] [address], [facility] [address] [phone] * MICROALBUMIN/CREATININE RATIO, URINE, RANDOM (05/09/2024 10:35 AM EDT) CREATININE, RANDOM URINE 194 20 - 275 mg/dL [facility] MICROALBUMIN 1.1 mg/dL [employer] [facility] Comment: Reference Range Not established MICROALBUMIN/CREA TININE RATIO, RANDOM URINE 6 <30 mg/g creat [employer] [facility] Comment: The ADA defines abnormalities in albumin excretion as follows: Albuminuria Category Result (mg/g creatinine) Normal to Mildly increased <30 Moderately increased 30-299 Severely increased > OR = 300 The ADA recommends that at least two of three specimens collected within a 3-6 month period be abnormal before considering a patient to be within a diagnostic category. Urine Urine specimen / Unknown 05/09/2024 10:35 AM EDT 05/09/2024 10:36 AM EDT Narrative [facility] - 05/10/2024 2:31 PM EDT FASTING:YES Jake Mahoney MATERIAL REQUIREMENTS WORKER-C LAB URINE AMBULATORY Eve l Result [facility] [address] [place] [id number], [employer] [address] [place] [phone] * (ABNORMAL) COMPREHENSIVE METABOLIC PANEL (12/22/2023 1:28 PM EST) GLUCOSE 157(H) 65 - 99 mg/dL [employer] [facility] Comment: Fasting reference interval For someone without known diabetes, a glucose value >125 mg/dL indicates that they may have diabetes and this should be confirmed with a follow-up test. UREA NITROGEN (BUN) 14 7 - 25 mg/dL [employer] [facility] CREATININE (blood) 0.71 0.50 - 1.05 mg/dL [employer] EGFR 95 > OR = 60 mL/min/1. 73m2 [employer] BUN/CREATININE RATIO SEE NOTE: [employer] [facility] Comment: Not Reported: BUN and Creatinine are within reference range. SODIUM 140 135 - 146 mmol/L [employer] [facility] [employer] POTASSIUM 3.7 3.5 - 5.3 mmol/L [employer] CHLORIDE 105 98 - 110 mmol/L [employer] CARBON DIOXIDE 28 20 - 32 mmol/L [employer] [facility] CALCIUM 9.6 8.6 - 10.4 mg/dL [facility] PROTEIN, TOTAL 6.9 6.1 - 8.1 g/dL [facility] ALBUMIN 4.4 3.6 - 5.1 g/dL [facility] [place] [facility] GLOBULIN 2.5 1.9 - 3.7 g/dL (calc) [facility] ALBUMIN/GLOBULI N RATIO 1.8 1.0 - 2.5 (calc) [facility] BILIRUBIN, TOTAL 0.3 0.2 - 1.2 mg/dL [facility] ALKALINE PHOSPHATASE 90 37 - 153 U/L [facility] AST 13 10 - 35 U/L [facility] ALT 18 6 - 29 U/L [facility] Blood Blood / Unknown 12/22/2023 1 :28 PM EST 12/22/2023 1:29 PM EST Narrative [facility] - 12/23/2023 8:06 PM EST FASTING:UNKNOWN Jake Mahoney MATERIAL REQUIREMENTS WORKER-C LAB - BLOOD DRAW Edited R esult - Final [facility] [address] [address], [facility] [address] [phone] * HEPATITIS C AB W/RFLX HCV RNA, QT, RT PCR (07/01/2023 9:42 AM EDT) HEPATITIS C ANTIBODY NON-REACT JENN NON-REACT JENN [facility] Comment: HCV antibody was non-reactive. There is no laboratory evidence of HCV infection. In most cases, no further action is required. However, if recent HCV exposure is suspected, a test for HCV RNA (test code 14889) is suggested. For additional information please refer to http://education.atHomestars/faq/DTI70u9 (This link is being provided for informational/ educational purposes only.) Blood Blood / Unknown 07/01/2023 9 :42 AM EDT 07/01/2023 9:43 AM EDT us Justin Tino Dom FNP LAB - BLOOD DRAW E dited Result - Final Performing Organization Address City/[facility]/ZIP Co de Phone Number [facility] [address] [address], [facility] [address] [address] * HIV 1/2 AG & AB W/RFLX (4TH GEN) (07/01/2023 9:42 AM EDT) HIV AG/AB, 4TH GEN NON-REAC TIVE NON-REAC TIVE [facility] Comment: HIV-1 antigen and HIV-1/HIV-2 antibodies were not detected. There is no laboratory evidence of HIV infection. PLEASE NOTE: This information has been disclosed to you from records whose confidentiality may be protected by state law. If your state requires such protection, then the state law prohibits you from making any further disclosure of the information without the specific written consent of the person to whom it pertains, or as otherwise permitted by law. A general authorization for the release of medical or other information is NOT sufficient for this purpose. For additional information please refer to http://education.atHomestars/faq/OEQ659 (This link is being provided for informational/ educational purposes only.) The performance of this assay has not been clinically validated in patients less than 2 years old. Blood Blood / Unknown 07/01/2023 9 :42 AM EDT 07/01/2023 9:43 AM EDT Justin Jiménez Dom [facility] LAB - BLOOD DRAW F inal Result [facility] [address] [address], [facility] [address] [phone] * HISTORIC DEXA SCAN (04/10/2021 12:00 AM EDT) Anatomical Region Laterality Modality Other 04/10/2021 Alyssa Duarte PA-C IMG DXA Final Result * COLONOSCOPY (11/08/2012 3:03 PM EST) Impressions Alyssa Duarte PA-C - 11/08/2012 3:03 PM EST Normal full colonoscopy without tumors, inflammatory, or vascular lesions. Enlarged external hemorrhoids with small perianal tags- performed in [place], repeat 5-7 years Narrative Alyssa Duarte PA-C - 11/08/2012 3:03 PM EST Normal full colonoscopy without tumors, inflammatory, or vascular lesions. Enlarged external hemorrhoids with small perianal tags- performed in [place], repeat 5-7 years Alyssa Duarte PA-C PROCEDURES Final Result from Last 3 Months or Most Recently Relevant to Health Maintenance Insurance [facility] Care Teams Supervisor Poultry Hatchery Relationship Specialty Start Date End Date Jake Mahoney FNP-C [address] [place] [address] PCP - General Internal Medicine 04/25/24
[2025-04-25 12:20] LABS: Appearance Urine Cloudy; Glucose Urine UA >=1000 mg/dL (Negative); PH 7.5 (5.0-9.0); Specific Gravity - Urine 1.020 (1.005-1.025); UMIC TRIGGER UACC YES
[2025-04-25 12:32] LABS: Other Crystals Urine Present
[2025-04-25 12:56] VITALS: BP 00/00; PULSE 0; RESP 0; TEMP -17.7; TEMP 0
== END 2025-04-25 12:57 | disposition home or self-care (01) ==
PROVIDERS: Emergency Provider Emergency Medicine; PCP Dentist General Practice
DX: L02.411 Cutaneous abscess of right axilla (principal); S39.012A Strain of muscle, fascia and tendon of lower back, initial encounter; R60.9 Edema, unspecified; X58.XXXA Exposure to other specified factors, initial encounter; Y93.9 Activity, unspecified; Y92.9 Unspecified place or not applicable; Y99.9 Unspecified external cause status; Z79.899 Other long term (current) drug therapy
CPT/HCPCS: 36415; 80053; 81001; 83735; 85025; 99283; 99284

== ENCOUNTER 2025-07-18 09:07 | Emergency (ER) | payer OTHER, SELFPAY ==
--- NOTE | ~2025-07-18 | XR_ITS ---
EXAMINATION: XR CHEST CLINICAL INFORMATION: chest pain COMPARISON: August 15, 2023 TECHNIQUE: Frontal view of the chest was obtained. FINDINGS: Again noted are linear densities ranging up from the right infrahilar region into the lung, likely scarring and atelectasis. Lungs are clear otherwise. Heart size is normal. There is no evidence for pleural effusion. Port-A-Cath has been removed since the prior. XR/XR chest 1V IMPRESSION: Unremarkable examination. Electronically signed by: Nolan Patton MD 07/18/2025 11:35 AM EDT
[2025-07-18 09:14] VITALS: BP 167/77; PULSE 84; RESP 16; TEMP 36.6; O2SAT 97; BMI 33.9
--- NOTE | 2025-07-18 10:11 | ED_ITS ---
HPI - Chest Pain General Chief Complaint: Chest Pain Stated Complaint: fatigue, pain in shoulders/ lower extremities Time Seen by Provider: 07/18/25 10:11 Source: social work coordinator Mode of arrival: ambulatory Limitations: no limitations and language barrier History of Present Illness ED Provider: HPI narrative: 64-year-old woman with a history of asthma, states had wheezing in the morning around 04:00 in the morning and had 1 nebulizer treatment and did not want to do another 1 because she is home by herself in she wanted to be in the ER, no fevers or chills, she did have some cough as well. Had some other nonspecific complaints she states she had some chest and back discomfort worse with movement no pleurisy. Related Data Previous Rx's ?Medication ?Instructions ?Recorded albuterol sulfate 90 mcg/actuation 2 inh inhalation Q4 -6H PRN 08/05/23 breath activated powder inhaler shortness of breath or wheezing #1 ea prednisone 20 mg tablet 40 mg (2 x 20 mg) PO DAILY 5 days 08/05/23 #10 tabs albuterol sulfate 90 mcg/actuation 2 puff inhalation Q ID PRN 08/09/23 aerosol inhaler shortness of breath or wheez ing #6.7 grams prednisone 20 mg tablet 40 mg (2 x 20 mg) PO DAILY 5 days 08/15/23 #10 tabs cephalexin 500 mg capsule 500 mg PO QID #28 caps 04/25 cyclobenzaprine 5 mg tablet 5 mg PO TID PRN muscle spa sm #10 04/25/25 tabs lidocaine 5 % topical patch 1 patch topical DAILY #15 ea 04/25/25 prednisone 20 mg tablet 40 mg (2 x 20 mg) PO DAILY 5 days 07/18/25 #10 tabs Allergies Allergy/AdvReac Type Severity Reaction Status Date / Time feathers Allergy Angioedema Verified 07/18/25 09:16 ketorolac (From Toradol) Allergy Rash Verified 07/18/25 09:16 Review of Systems 2 Constitutional: Constitutional: Reports as per [facility] Social History Social History Alcohol intake: never Advance Directives: No Advance Directives Information Provided: Yes Physical Exam 2 Vital Signs: Vital Signs: Last Vital Signs Temp 98.5 F 07/18/25 11:11 Pulse 79 07/18/25 11:11 Resp 22 H 07/18/25 11:11 BP 154/70 H 07/18/25 11:11 Pulse Ox 96 07/18/25 11:11 O2 Del Method Room Air 07/18/25 11:11 BMI result Body Mass Index 33.9 Const: Other: General: ?Appears of stated age ? uvula midline, no tonsillar exudates ? Neck: Supple, no LAD ? ?CV: RRR, no obvious murmurs appreciated ? ?Resp: ?Minimal expiratory wheezing no stridor, no rales ? Abd: ?Bowel sounds are present, no tenderness no rebound no rigidity ? ?MSK: FROM, strength 5/5 all extremities, nonpitting bilateral ankle edema, no lower extremity pitting edema ? Skin: Warm, dry, intact, ? ?Neuro: ?Alert and oriented x3, moving upper and lower extremities symmetrically, no obvious facial asymmetry noted, cranial nerves 2-12 intact Medications Administered Discontinued Medications Generic Name Dose Route Start Last Admin Trade Name Kai PRN Reason Stop Dose Admin Albuterol Sulfate 2.5 mg/ 0 mg 07/18/25 11:04 07/18/25 11:10 Albuterol/Ipratropium 3 ml INHALE 07/18/25 11:05 1 dose ONCE ONE Administration Prednisone 60 mg 07/18/25 10:27 07/18/25 10:47 Prednisone 20 Mg Tablet PO 07/18/25 10:28 60 mg ONCE ONE Administration Medical Decision Making Medical Decision Making [facility] Narrative: 10:29 AM 07/18/2025 (Dr. Darrel Dukes): Overall well-appearing woman, she also showed me pictures from a home which has essentially unclean floor and some mice droppings etc. she uses manic, minimal wheezing she I think it was anxious being home, we will start her on steroids, chest x-ray to evaluate for pneumonia, but this is unlikely ACS is a consideration no ongoing hypoxia tachycardic to suspect PE , this is not the type of pain of sudden onset radiating to the back to suspect aortic dissection, if workup is unremarkable we will anticipate discharge Differential Diagnosis Differential Diagnoses: The differential diagnosis associated with the presentation includes (CHF, COPD exacerbation, pneumonia, pneumothorax, ACS, PE,) Lab Data [facility] Lab Attestation statement: I reviewed the patient's lab results. 10/02/25 10:32 07/18/25 10:32 Labs: Lab Results 07/18/25 Range/Units 10:32 WBC 5.3 (4.8-10.8) X10*3/uL RBC 4.74 (4.20-5.50) X10*6/uL Hgb 13.6 (12.0-16.0) g/dl Hct 40.9 (37.0-47.0) % MCV 86.3 (80.0-98.0) fL MCH 28.7 (27.0-33.0) pg MCHC 33.3 (31.0-35.0) g/dl RDW 13.3 (11.0-16.0) % Plt Count 351 (160-400) X10*3/uL MPV 9.2 L (9.4-12.3) fL Immature Gran % (Auto) 0.2 (0.0-0.4) % Neut % (Auto) 33.0 L (45-73) % Lymph % (Auto) 54.0 H (20-40) % [place] % (Auto) 10.0 (2-11) % Eos % (Auto) 1.7 (0-4) % Baso % (Auto) 1.1 (0-2) % Lymph # (Auto) 2.9 (1.2-4.9) X10*3/uL [place] # (Auto) 0.5 (0.1-1.2) X10*3/uL Eos # (Auto) 0.1 (0.0-0.4) X10*3/uL Baso # (Auto) 0.1 (0.0-0.2) X10*3/uL Abs Immat Gran (auto) 0.01 (0.00-0.03) X10*3/uL Absolute Neuts (auto) 1.7 L (2.0-8.3) x10*3/uL Absolute Nucleated RBC 0.000 (0.0-0.012) X10*3/uL Nucleated RBC % (auto) 0.0 (0.0-0.2) /100WBC Sodium 141 (135-145) mmol/L Potassium 3.5 (3.3-5.1) mmol/L Chloride 107 (96-108) mmol/L Carbon Dioxide 26 (22-29) mmol/L Anion Gap 12 (12-20) BUN 10 (9-16) mg/dL Creatinine 0.57 (0.5-1.4) mg/dL Estim Creat Clear Calc 102.8 Estimated GFR > 60 Random Glucose 114 (60-115) mg/dL Calcium 8.9 (8.4-10.2) mg/dL Magnesium 2.2 (1.6-2.6) mg/dL Total Bilirubin 0.5 (0.0-1.0) mg/dL Direct Bilirubin 0.2 (0.0-0.5) mg/dL AST 26 (5-31) U/L ALT 30 (0-31) U/L Alkaline Phosphatase 110 (39-117) U/L Total Creatine Kinase 328 H (26-140) U/L Total Protein 7.2 (6.5-8.0) g/dL Albumin 4.5 (3.5-5.0) g/dL Lipase 28 (8-78) U/L Independent Interpretation I performed an independent interpretation of an: EKG (77 beats per minute otherwise normal ECG without dysrhythmia, AV tello blocks or ST-T changes to suspect underlying ACS, my independent interpretation) and Plain X-Ray (My independent chest xray interpretation: Lungs: Lungs are clear bilaterally without evidence of focal consolidation, pleural effusion, or pneumothorax. Cardiac silhouette is unremarkable, no obvious mediastinal widening, no obvious bony abnormalities such as fractures. Impression: Normal chest X-r) Radiology Impression Discussion of test interpretation with radiology: I have reviewed the radiologist's reading. Radiologist Impression: XR/XR chest 1V IMPRESSION: Unremarkable examination. Prescription Management I considered prescription management with: Antibiotic Social Determinants Patient?s care significantly limited by Social Determinants of Health including: Problems related to primary support group Discharge Plan Discharge Clinical Impression: Asthma exacerbation Patient Disposition: Home, Self-Care Instructions: Asthma (ED) Additional Instructions: Continue steroids starting tomorrow, 1 nebulizer treatment every 4 hours for the rest of the day if you still having wheezing, and please follow up with your primary care you have had blood work, EKG, chest x-ray all of which has been reassuring any other issues concerns come back to the ER Prescriptions: New prednisone 20 mg tablet 40 mg PO DAILY 5 Days Qty: 10 0RF No Action prednisone 20 mg tablet 40 mg PO DAILY 5 Days Qty: 10 0RF albuterol sulfate 90 mcg/actuation aerosol powdr breath activated 2 inh inhalation Q4-6H PRN (Reason: shortness of breath or wheezing) Qty: 1 0RF albuterol sulfate 90 mcg/actuation HFA aerosol inhaler 2 puff inhalation QID PRN (Reason: shortness of breath or wheezing) Qty: 6.7 0RF prednisone 20 mg tablet 40 mg PO DAILY 5 Days Qty: 10 0RF cephalexin 500 mg capsule 500 mg PO QID Qty: 28 0RF lidocaine 5 % adhesive patch,medicated 1 patch topical DAILY Qty: 15 0RF Rx Instructions: leave on most painful area for up to 12 hrs cyclobenzaprine 5 mg tablet 5 mg PO TID PRN (Reason: muscle spasm) Qty: 10 0RF Print Language: Kiswahili
--- NOTE | 2025-07-18 10:11 | ECG_ITS ---
Test Reason : chest pain Blood Pressure : */* mmHG Vent. Rate : 77 BPM Atrial Rate : 77 BPM P-R Int : 182 ms QRS Dur : 68 ms QT Int : 420 ms P-R-T Axes : 25 5 54 degrees QTcB Int : 475 ms Normal sinus rhythm Borderline QT prolongation Otherwise normal ECG When compared with ECG of 15-Aug-2023 09:22, No significant change was found Referred By: Sunita Parry Electronically Signed By: JUVENTINO ROMAN
[2025-07-18 10:43] LABS: MANUAL DIFF FLAG NO
[2025-07-18 10:51] LABS: Hematocrit 40.9 % (37.0-47.0); Hemoglobin 13.6 g/dl (12.0-16.0); Imm Gran Abs Auto 0.01 X10*3/uL (0.00-0.03); Imm Gran Pct Auto 0.2 % (0.0-0.4); Lymphocytes Absolute Auto 2.9 X10*3/uL (1.2-4.9); Mean Corpuscular HGB Conc 33.3 g/dl (31.0-35.0); Mean Corpuscular Hemoglobin 28.7 pg (27.0-33.0); Mean Corpuscular Volume 86.3 fL (80.0-98.0); NRBC Abs Auto 0.000 X10*3/uL (0.0-0.012); NRBC Pct Auto 0.0 /100WBC (0.0-0.2); Platelet Count 351 X10*3/uL (160-400); Red Blood Count 4.74 X10*6/uL (4.20-5.50); White Blood Count 5.3 X10*3/uL (4.8-10.8)
--- OUTSIDE RECORDS SUMMARY | 2025-07-18 10:51 | XMS_ITS | Clinical Summary ---
Author Organization [facility] Address [address] [place] [address] Phone Care Team Providers Care Control Clerk Repairs Name Role Phone Maru, Jake [facility] Primary Care Provider [phone] Allergies Active Allergy Reactions Criticality Noted Date [...] Date Obesity (BMI 30-39.9) 02/20/2018 Diabetes mellitus ([facility] V24, [facility] V28) 04/2018 Encounters Date Type Department Care Team Description 05/28/2025 7:18 AM EDT - 05/28/2025 11:59 PM EDT Hospital Encounter [facility] Xray [address] [place] [address] Low back pain Discharge Disposition: Home or Self Care from Last 3 Months Surgical History Surgery Date Site/Laterality Comments HYSTERECTOMY 2003 PROCEDURE:HYSTERECTOMY MASTECTOMY 2013 PROCEDURE:MASTECTOMY;COMMENT:bilateral Medical History Medical History Date Comments Diabetes mellitus ([facility] V24, [facility] V28) DX:Diabetes mellitus ([facility]) Hypertension DX:Hypertension Depression DX:Depression Anxiety Asthma Social History Tobacco Use Types Packs/Day Years Used Date Smoking Tobacco: Never Smokeless Tobacco: Never Alcohol Use Standard Drinks/Week Comments No 0 (1 standard drink = 0.6 oz pur e alcohol) Interpersonal Safety Answer Date Record ed Physical Abuse Unrecognized value 01/29/2025 Verbal Abuse Unrecognized value 01/29/2025 Comments No Sex and Gender Information [...] 01/29/2025 10:44 AM EDT Plan of Treatment Upcoming Encounters Date Type Department Care Team (Late st Contact Info) Description 08/29/2025 8:45 AM EST Consult General Surgery - [address] [place] [address] Eleuterio Godwin MD [address] [place] [phone] Health Maintenance Due Date Last Done Comments Breast Cancer Screening 1960 Diabetes: Annual Foot Exam 1969 Diabetes: Annual Retina Eye Exam 1969 Cervical Cancer Screening: Pap Smear 1980 RSV Immunization Adult Patients (1 - Risk 60-74 years 1-dose series) 2019 Medicare Annual Wellness Visit 09/19/2022 Social Influencers of Health Screening 09/19/2022 Depression Screening 10/17/2024 Diabetes: Annual Urine Albumin-Creatinine Ratio (uACR) 05/09/2025 05/09/2024, 02/22/2023, 01/26/2022 COVID-19 Vaccine (8 - Pfizer risk 2023- season) 2025 07/19/2024, 08/17/2023, 07/15/2022, Additional history exists Influenza Vaccine (#1) 2025 09/05/2020 Diabetes: Blood Sugar Control Test (HGBA1C) 11/24/2025 05/24/2025, 11/09/2024 Falls Risk Assessment 01/29/2026 01/29/2025 Diabetes: Annual GFR (Glomerular Filtration Rate) 05/24/2026 05/24/2025, 12/22/2023 Hypertension/CHF/CAD Annual BMP Blood Test 05/24/2026 05/24/2025, 12/22/2023 DTaP,Tdap,and Td Vaccines (2 - Td or Tdap) 07/10/2028 07/10/2018 Colorectal Cancer Screening: Colonoscopy 01/29/2030 01/29/2025 Cholesterol Screening (Lipid Panel) 05/24/2030 05/24/2025, 05/24/2025, 11/09/2024, Additional history exists Osteoporosis Screening (Bone Density Screening) 04/10/2031 04/10/2021 Zoster Vaccines Completed 10/14/2020, 06/11/2020 Hepatitis C Screening Completed 07/01/2023 Pneumococcal Vaccine: 50+ Years Completed 07/19/2024, 07/10/2018 HIB Vaccines Aged Out [...] Procedure Name Priority Date/Time Associated Diagnosis Comments XR LUMBAR SPINE 4+ VIEWS Routine 05/28/2025 7:28 AM EDT Low back pain COLONOSCOPY Routine 01/29/2025 11:24 AM EDT Colon cancer screening JULIUS DEXA AXIAL SKELETON Routine 04/10/2021 10:24 AM EDT Other specified disorders of bone density and structure, other site from Last 3 Months or Most Recently Relevant to Health Maintenance Results * XR Lumbar Spine 4+ Views (05/28/2025 7:28 AM EDT) Anatomical Region Laterality Modality Spine, L-spine Radiographic Merry ging 05/28/2025 7:57 AM EDT Impressions 05/28/2025 8:01 AM EDT No acute abnormality. Equivocal finding with sclerosis superimposing over the right L5 pars interarticulares on a single view. Although nonspecific this does not have definitely aggressive features. -------- FINAL REPORT -------- Dictated By: Chino House Dictated Date: 05/28/2025 07:57 ET Assigned Physician: Chino House Reviewed and Electronically Signed By: Chino House Signed Date: 05/28/2025 08:01 ET Workstation ID: [id number] Transcribed By: Self Edit Transcribed Date: 05/28/2025 07:57 ET Narrative 05/28/2025 8:01 AM EDT EXAMINATION: CHEST CLINICAL INFORMATION: Back pain COMPARISON: None. TECHNIQUE: Frontal, lateral, both oblique views and coned-down view of the lumbosacral junction FINDINGS: There are 5 intact lumbar-type vertebrae in normal alignment. No focal lesion or loss of volume. No significant disc narrowing. Trace osteophytes anteriorly at L2/L3. On the oblique view of the pars on the right there is some sclerosis superimposed over the pars interarticulares at L5 on the right. This is not definitely identified in any other view and could represent a summation. There is some mild arterial calcification. Moderate amount of fecal residue in the visualized colon. Procedure Note Chino House, - 05/28/2025 EXAMINATION: CHEST CLINICAL INFORMATION: Back pain COMPARISON: None. TECHNIQUE: Frontal, lateral, both oblique views and coned-down view of thelumbosacral junction FINDINGS: There are 5 intact lumbar-type vertebrae in normal alignment. No focallesion or loss of volume. No significant disc narrowing. Trace osteophytesanteriorly at L2/L3. On the oblique view of the pars on the right there is some sclerosissuperimposed over the pars interarticulares at L5 on the right. This isnot definitely identified in any other view and could represent asummation. There is some mild arterial calcification. Moderate amount of fecal residue in the visualized colon. IMPRESSION: No acute abnormality. Equivocal finding with sclerosis superimposing overthe right L5 pars interarticulares on a single view. Although nonspecificthis does not have definitely aggressive features. -------- FINAL REPORT -------- Dictated By: Chino House Dictated Date: 05/28/2025 07:57 ET Assigned Physician: Chino House Reviewed and Electronically Signed By: Chino House Signed Date: 05/28/2025 08:01 ET Workstation ID: [id number] Transcribed By: Self Edit Transcribed Date: 05/28/2025 07:57 ET us Jake MICHAEL IMG XR PROCEDURES Final Res ult * COLONOSCOPY Anesthesia - MAC; [facility] ENDOSCOPY (01/29/2025 11:24 AM EDT) Anatomical Region [...] pathology results. Narrative 01/29/2025 11:27 AM EDT [facility] GI Patient Name: Jyothi Lew Procedure Date: 01/29/2025 11:10 AM Date of : 1960 Age: 64 Gender: Female Note Status: Finalized Attending MD: Viviana Borges DO, [id number] Procedure Date No Time: 01/29/2025 Procedure: Colonoscopy [...] the physician, the nurse, the anesthesiologist, the principal systems engineer and the optical fabrication technician in the pre-procedure area in the [...] was minimal. Procedure Code(s): --- Professional --- 00073, Colonoscopy, flexible; with removal of tumor(s), polyp(s), or other lesion(s) by snare technique Diagnosis Code(s): --- Professional --- Z12.11, Encounter for screening for malignant neoplasm of colon D12.2, Benign neoplasm of ascending colon CPT copyright 2020 [employer]. All rights reserved. The codes documented in this report are preliminary and upon human services professional review may be revised to meet current compliance requirements. VIVIANA Borges DO 01/29/2025 11:27:28 AM This report has been signed electronically.Viviana Borges DO Number of Addenda: 0 Note Initiated On: 01/29/2025 11:10 AM Scope Withdrawal Time: 0 hours 8 minutes 1 second Scope In: 11:15:56 AM Scope Out: 11:26:44 AM Endoscopy Department at [facility] - [address] [place] [phone] Procedure Note Viviana Borges DO - 01/29/2025 [facility] GI Patient Name: Jyothi Lew Procedure Date: 01/29/2025 11:10 AM Date of : 1960 Age: 64 Gender: Female Note Status: Finalized Attending MD: Viviana Borges DO, [id number] Procedure Date No Time: 01/29/2025 Procedure: Colonoscopy [...] the physician, the nurse, the anesthesiologist, the principal systems engineer and thetechnician in the pre-procedure area in [...] loss wasminimal. Procedure Code(s): --- Professional --- 92047, Colonoscopy, flexible; with removal of tumor(s), polyp(s), or other lesion(s) by snare technique Diagnosis Code(s): --- Professional --- Z12.11, Encounter for screening for malignantneoplasm of colon D12.2, Benign neoplasm of ascending colon CPT copyright 2020 [employer]. All rights reserved. The codes documented in this report are preliminary and upon human services professional reviewmay be revised to meet current compliance requirements. VIVIANA Borges DO 01/29/2025 11:27:28 AM This report has been signed electronically.Viviana Borges DO Number of Addenda: 0 Note Initiated On: 01/29/2025 11:10 AM Scope Withdrawal Time: 0 hours 8 minutes 1 second Scope In: 11:15:56 AM Scope Out: 11:26:44 AM Endoscopy Department at [facility] - [address] [place] [phone] IMPRESSION: - One 5 mm polyp in the ascending colon, removed with a cold snare. Resected and retrieved. Recommendation: - - Discharge patient to home. - High fiber diet. - Continue present medications. - Await pathology results. - Repeat colonoscopy for surveillance based on pathology results. us Viviana Borges DO GI~PROCEDURE ORDERABLES Final Re sult * JULIUS DEXA AXIAL SKELETON (04/10/2021 10:24 AM EDT) Anatomical Region Laterality Modality Mammography 04/10/2021 9:19 AM EDT Narrative 04/10/2021 10:24 AM [facility] Diagnostic Imaging Department [address] [place] [id number] Patient: JYOTHI LEW /Age/Sex: 1960 60 - F Unit#: [id number] Location/Status: SPDIMAM/REG CLI [facility]em[facility] Ordering Physician: JACOB BETHEA DO Julius Dexa Axial Skeleton - 04/10/21 - 1006 [...] probability of hip fracture of 0.3%. Code 34589 Dictating Physician: YOANA BAZZI MD Electronically Signed by: YOANA BAZZI MD Dic Date/Time: 04/10/21 1023 Sign date/Time: 04/10/21 1024 Procedure Note Yoana Bazzi MD - 10/05/2022 [facility] Diagnostic Imaging Department [address] [place], [place] [id number] Patient: VIPINJYOTHI Aleena Cesar./Age/Sex: 1960 - 60 - F Unit#: [id number] Location/Status: [facility] Mnemonic/[facility]ing [facility] Ordering Physician: JACOB BETHEA DO Julius Dexa [...] density of the femurs bilaterally is 0.897 gm/lr0itdri is 89% of that of young normals [...] probability of hip fracture of 0.3%. Code 05331 Dictating Physician: YOANA BAZZI MD Electronically Signed by: YOANA BAZZI MD Dic Date/Time: 04/10/21 1023 Sign date/Time: 04/10/21 1024 Jacob Bethea DO IMG BI PROCEDURES Final Result from Last 3 Months or Most Recently Relevant to Health Maintenance Insurance MEDICAID - [place] [facility] MEDICARE ADVANTAGE MEDICARE Care Teams Control Clerk Repairs Relationship Specialty Start Date End Date Jake Mahoney FNP [address] [place] [address] PCP - General 12/26/23
--- OUTSIDE RECORDS SUMMARY | 2025-07-18 10:51 | XMS_ITS | Clinical Summary ---
Author Organization [facility] Address [address] [place] [address] Care Team Providers Care Appliance Counselor Name Role Phone DomJustin AMARI Primary Care Provider Allergies No known active [...] (2 of 2 - PCV) 07/10/2019 07/10/2018 Fall Risk Assessment 2024 Osteoporosis Screening (DEXA Scan) 2024 COVID-19 Vaccine ( season) 2025 07/15/2022, 01/26/2022, 09/22/2021, Additional history exists Influenza Vaccine (#1) 2025 09/05/2020 DTap / [...] age to complete this topic Care Teams Appliance Counselor Relationship Specialty Start Date End Date Justin Fernandes APRN [address] [place] [address] PCP - General Family Medicine 03/23/23 Justin Fernandes FNP [address] [place] [address] Nurse Practitioner Primary Care 03/23/23
[2025-07-18 11:00] LABS: Alanine Aminotransferase 30 U/L (0-31); Albumin Level 4.5 g/dL (3.5-5.0); Alkaline Phosphatase 110 U/L (39-117); Anion Gap 12 (12-20); Aspartate Amino Transferase 26 U/L (5-31); Blood Urea Nitrogen 10 mg/dL (9-16); Calcium 8.9 mg/dL (8.4-10.2); Carbon Dioxide 26 mmol/L (22-29); Chloride 107 mmol/L (96-108); Creatinine Clr Calc Pharmacy 102.8; Estimated Glomerular Filt Rate > 60; Lipase 28 U/L (8-78); Magnesium 2.2 mg/dL (1.6-2.6); Potassium 3.5 mmol/L (3.3-5.1); Sodium 141 mmol/L (135-145); Total Protein 7.2 g/dL (6.5-8.0)
[2025-07-18] MEDS: Albuterol Sulfate 2.5 MG, Albuterol/Iprat 2.5/0.5MG 3 ML 3 ML INHALE (11:10)
[2025-07-18 11:11] VITALS: BP 154/70; PULSE 77; PULSE 79; RESP 20; RESP 22; TEMP 36.9; O2SAT 96; O2SAT 97
[2025-07-18 12:00] VITALS: BP 158/92; PULSE 87; RESP 16; TEMP 36.7; O2SAT 97
[2025-07-18 14:58] LABS: Troponin-I High Sensitivity < 2.7 ng/L (<3.5-17.0)
== END 2025-07-18 12:01 | disposition home or self-care (01) ==
PROVIDERS: Emergency Medicine; Emergency Provider Emergency Medicine; PCP Dentist General Practice
DX: J45.901 Unspecified asthma with (acute) exacerbation (principal); R07.89 Other chest pain; M54.50 Low back pain, unspecified; Z79.899 Other long term (current) drug therapy
CPT/HCPCS: 36415; 71045; 80048; 80076; 82550; 83690; 83735; 84484; 85025; 93005; 94640; 99284; 99285

== ENCOUNTER → 2025-07-18 10:11 | Outpatient (BNV) | payer OTHER, SELFPAY | PROVIDERS: Emergency Provider Emergency Medicine; PCP Dentist General Practice; Visit Provider Internal Medicine | DX: R07.9 Chest pain, unspecified (principal) | CPT/HCPCS: 93010 ==

== ENCOUNTER → 2025-07-18 10:12 | Outpatient (BNV) | payer OTHER, SELFPAY | PROVIDERS: Emergency Provider Emergency Medicine; PCP Dentist General Practice; Visit Provider Radiology Diagnostic Radiology | DX: R07.9 Chest pain, unspecified (principal) | CPT/HCPCS: 71045 ==